=== PATIENT | female | born 1935 | race Asian ===

== ENCOUNTER 2017-07-26 23:26 | Inpatient (IN) | payer OTHER ==
--- NOTE | 2017-07-26 23:31 | PDOC ---
History of Present Illness - General Chief Complaint: Chest Pain Stated Complaint: CHEST PAIN Time Seen by Provider: 07/26/17 23:30 History Source: Patient Exam Limitations: No Limitations - History of Present Illness Initial Comments: 07/27/17 11:33 This is an 82-year-old female brought in by her daughter for evaluation of upper abdominal pain 1 day. Patient said that it began after eating some fatty food and is associated with some last couple of appetite and nausea. Patient denies any fevers, chills, vomiting or diarrhea. Patient's last bowel movement was today and smaller than normal. Patient denies history of similar pain in the past. Patient has history of hypertension, high cholesterol and diabetes. PAST MEDICAL HISTORY: no significant history PAST SURGICAL HISTORY: no significant history FAMILY HISTORY: no pertinant history SOCIAL HISTORY: Pt lives with family and is employed. MEDICATIONS: reviewed ALLERGIES: As per nursing notes Review of Systems General: No fevers or chills, no weakness, no weight loss HEENT: No change in vision. No sore throat,. No ear pain CardioVascular: No chest pain or shortness of breath Respiratory:No cough, or wheezing. Gastrointestinal:+ Abdominal pain, + nausea, no vomitting, diarrhea or constipation, No rectal bleeding Genitourinary: No dysuria, hematuria, or frequency Musculoskeletal: No joint or muscle pain or swelling Neurologic: No headache, vertigo, dizziness or loss of consciousness Psychiatric: nor depression Skin: No rashes or easy bruising Endocrine: no increased thirst or abnormal weight change Allergic: no skin or latex allergy All other systems reviewed and normal Exam: General: Well-nourished well-developed individual, no acute distress HEENT: Throat: Normal, tonsils normal, no erythema or exudate Neck: Supple, no meningeal signs, no lymphadenopathy Eyes::Pupils equal reactive and round, extraocular motion intact Chest: Nontender to palpation Cardiac: S1-S2 normal, regular rate and rhythm, no murmurs rubs or gallops Respiratory: Lungs clear to auscultation bilateral Abdomen: Soft, nondistended, normal bowel sounds, moderately tender to palpation epigastric and right upper quadrant. There is no guarding or rebound. Extremities: Warm, dry, no cyanosis, clubbing, or edema Skin: No rashes Neuro: Alert and oriented x3, CN II - XII intact, nonfocal exam with normal strength, normal sensation, normal reflexes, normal gait, Psych: Normal mood and affect Medical decision making: This is an 82-year-old female with right upper quadrant /epigastric pain on exam post eating some fatty food. Patient most likely has acute cholecystitis but also could be cardiac in nature, gastritis, or pneumonia. Will obtain workup including CBC, calm, cardiac enzymes, EKG, chest x -ray, ultrasound of gallbladder. Will reassess and follow-up results of workup 12MN EKG shows normal sinus rhythm at a rate of 62, no acute ST-T wave changes normal EKG Chest x-ray shows no acute pathology Reassessment patient remains unchanged. 01:30 Patient's ultrasound is positive for acute cholecystitis. Assessment and plan: This is an 82-year-old female who comes in complaining of epigastric/right upper quadrant pain 1 day. Patient's workup reveals acute cholecystitis with a 7 mm stone impacted in the neck of the gallbladder Patient otherwise has a normal white count there is no left shift and her liver enzymes are negative. Including lipase. Patient will be admitted to an inpatient bed to the medical service. Dr. Knapp is on-call for surgery and was called multiple times between 1:30 AM and 3:30 AM with no response. Medical hospitalist services was contacted who accepted the patient for admission and patient went upstairs. We'll continue to try to contact Dr. Knapp. 07:00 Dr. Knapp never responded back to his multiple pages however patient is on an i morningadmitted to an npatient bed and the admitting doctor is aware of the need to contact him as well as the nurses taking care of the patient upstairs is also aware that he needs to still be contacted Past History - Past Medical History Allergies/Adverse Reactions: Allergies Allergy/AdvReac Type Severity Reaction Status Date / Time clopidogrel [From Plavix] Allergy Verified 07/26/17 23:36 gabapentin Allergy Verified 07/26/17 23:36 montelukast [From Singulair] Allergy Verified 07/26/17 23:36 sulfamethoxazole Allergy Verified 07/26/17 23:35 [From Bactrim] trimethoprim [From Bactrim] Allergy Verified 07/26/17 23:35 Home Medications: Ambulatory Orders Acetaminophen 325 mg PO PRN PRN 07/26/17 Aspirin [Ecotrin] 81 mg PO DAILY 07/26/17 Bimatoprost [Lumigan] 1 drop IO DAILY 07/26/17 Brimonidine Tartrate [Alphagan P 0.1% -] 1 drop OP BID 07/26/17 Brinzolamide [Azopt] 1 drp OP DAILY 07/26/17 Calcium Carbonate/Vitamin D3 [Calcium Petites Softgel] 1 each PO DAILY 07/26/17 Cholecalciferol (Vitamin D3) [Vitamin D3] 1,000 unit PO DAILY 07/26/17 Docusate Sodium 100 mg PO DAILY 07/26/17 Enalapril Maleate [Vasotec] 20 mg PO DAILY 07/26/17 Gemfibrozil 600 mg PO DAILY 07/26/17 Hydrocortisone 1% Cream [Hytone 1% Cream -] 1 applic TP BID 07/26/17 Levothyroxine [Synthroid -] 75 mcg PO DAILY 07/26/17 Loratadine 10 mg PO HS 07/26/17 Lovastatin 10 mg PO DAILY 07/26/17 Metformin HCl 500 mg PO BID 07/26/17 Metoprolol Tartrate [Lopressor -] 25 mg PO BID 07/26/17 Olopatadine HCl [Pazeo] 1 drp OU DAILY 07/26/17 Propylene Glycol/Peg 400/Pf [Systane 0.3-0.4% Eye Drops] 1 each OP DAILY *Physical Exam - Vital Signs Last Vital Signs Temp Pulse Resp BP Pulse Ox 98 F 70 18 165/74 99 07/27/17 03:35 07/27/17 03:35 07/27/17 05:30 07/27/17 05:30 07/27/17 03:35 ED Treatment Course - LABORATORY CBC & Chemistry Diagram: 07/27/17 00:00 07/27/17 00:00 - ADDITIONAL ORDERS Additional order review: Laboratory Results 07/27/17 07/27/17 07/27/17 00:00 00:00 00:00 PT with INR INR Sodium Potassium Chloride Carbon Dioxide Anion Gap BUN Creatinine Creat Clearance w eGFR Random Glucose Calcium Total Bilirubin AST ALT Alkaline Phosphatase Creatine Kinase Cancelled Troponin I Cancelled Total Protein Albumin Lipase 214 07/27/17 07/27/17 07/26/17 00:00 00:00 23:58 PT with INR 11.00 INR 0.97 Sodium 135 L Potassium 4.1 Chloride 99 Carbon Dioxide 27 Anion Gap 9 BUN 19 H Creatinine 0.9 Creat Clearance w eGFR 59.80 Random Glucose 113 H Calcium 9.4 Total Bilirubin 0.4 AST 13 L ALT 15 Alkaline Phosphatase 48 Creatine Kinase 54 Troponin I < 0.02 Total Protein 7.6 Albumin 4.2 Lipase 07/27/17 00:00 RBC 4.51 MCV 88.1 MCHC 32.7 RDW 13.4 MPV 10.0 Neutrophils % 66.0 Lymphocytes % 22.9 Monocytes % 9.6 Eosinophils % 0.7 Basophils % 0.8 - RADIOLOGY Radiology Studies Ordered: Category Date Time Status CHEST X-RAY PORTABLE* [RAD] Stat Radiology 07/27/17 00:00 Taken GALLBLADDER US [US] Stat Ultrasound 07/27/17 00:01 Taken - Medications Given in the ED: ED Medications Discontinued Medications Generic Name Dose Route Start Last Admin Trade Name Freq PRN Reason Stop Dose Admin Al Hydroxide/Mg Hydroxide 30 ml 07/27/17 00:02 07/27/17 00:10 Mylanta Suspension - PO 07/27/17 00:03 30 ml ONCE ONE Administration Morphine Sulfate 2 mg 07/27/17 03:44 07/27/17 04:29 Morphine Injection - IVPUSH 07/27/17 03:45 Not Given ONCE ONE Morphine Sulfate 0.5 mg 07/27/17 03:43 07/27/17 03:58 Morphine Injection - IVPUSH 07/27/17 03:44 0.5 mg ONCE ONE Administration Piperacillin/Tazobactam/Dextrose 3.375 gm 07/27/17 01:39 07/27/17 04:29 Zosyn 3.375gm Ivpb (Premix) IVPB 07/27/17 01:40 Not Given ONCE ONE *DC/Admit/Observation/Transfer Diagnosis at time of Disposition: Acute cholecystitis due to biliary calculus - Discharge Dispostion Condition at time of disposition: Stable Admit: Yes Decision to Admit order Date/Time: Decision to Admit Order Category Date Time Status Decision to Admit to Hospital Routine Admission 07/27/17 02:59 Active - Referrals - Patient Instructions - Post Discharge Activity
[2017-07-27] MEDS ORDERED: MAG HYDROX/AL HYDROX/SIMETH -MYLANTA- ORAL SUSPENSION PO ONE (00:02)
[2017-07-27] MEDS ORDERED: MAG HYDROX/AL HYDROX/SIMETH 30 ML UNIT-DOSE CUP ONE (00:09)
[2017-07-27 01:16] LABS: BASO % 0.8 % (0-2.0); EOS % 0.7 % (0-4.5); HEMATOCRIT 39.7 % (32.4-45.2); LYMPH % 22.9 % (8-40); MCH 28.8 pg (25.7-33.7); MCHC 32.7 g/dl (32.0-36.0); MEAN CELL VOLUME 88.1 fl (80-96); MONO % 9.6 % (3.8-10.2); PLATELET COUNT 230 K/MM3 (134-434); RBC 4.51 M/mm3 (3.60-5.2); RDW 13.4 % (11.6-15.6); WHITE BLOOD COUNT 7.2 K/mm3 (4.0-10.0)
[2017-07-27 01:29] LABS: INR 0.97 (0.82-1.09)
[2017-07-27] MEDS ORDERED: PIPERACIL/TAZOB 3.375 GM 3.375 GM/50 ML PREMIX IVPB ONE (01:39)
[2017-07-27] MEDS ORDERED: PIPERACILLIN/TAZOBACTAM 3.375 GM VIAL IVPB ONE (01:44)
[2017-07-27] MEDS ORDERED: SODIUM CHLORIDE 1,000 ML IV SCH (01:45)
[2017-07-27 01:57] LABS: ALBUMIN 4.2 g/dl (3.4-5.0); ANION GAP 9 (8-16); BILIRUBIN,TOTAL 0.4 mg/dL (0.2-1.0); BLOOD UREA NITROGEN 19 mg/dL (7-18); CALCIUM 9.4 mg/dL (8.5-10.1); CHLORIDE 99 mmol/L (98-107); CO2 27 mmol/L (21-32); CREATININE 0.9 mg/dL (0.55-1.02); GLUCOSE,RANDOM 113 mg/dL (74-106); POTASSIUM 4.1 mmol/L (3.5-5.1); SGOT/AST 13 U/L (15-37); SGPT/ALT 15 U/L (12-78); SODIUM 135 mmol/L (136-145); TOT PROT 7.6 g/dl (6.4-8.2)
[2017-07-27 01:58] LABS: ALK PHOS 48 U/L (45-117)
[2017-07-27] MEDS ORDERED: morphine CARPU-JECT 2 MG/1 ML DISP.SYRIN IVPUSH ONE ×2 (03:43→03:44)
[2017-07-27] MEDS ORDERED: DEXTROSE 5%-0.45% SALINE 1,000 ML IV SCH (03:45)
[2017-07-27 04:50] VITALS: BMI 18.8
[2017-07-27 08:06] LABS: URINE APPEARANCE Clear; URINE BILIRUBIN Negative (NEGATIVE); URINE COLOR YELLOW; URINE GLUCOSE (UA) Negative (NEGATIVE); URINE KETONE Negative (NEGATIVE); URINE LEUK ESTERASE TRACE (NEGATIVE); URINE NITRITE Negative (NEGATIVE); URINE PROTEIN Negative (NEGATIVE); URINE UROBILINOGEN 0.2 (0.2-1.0)
--- NOTE | 2017-07-27 08:39 | PN ---
Progress Note (short form) - Note Progress Note: ID Consult dictated Acute cholecystitis R/O biliary sepsis Pending cultures, continue empiric zosyn
[2017-07-27] MEDS: PIPERACILLIN/TAZOB 3.375 GM 3.375 GM/50 ML BAG IVPB SCH ×2 (09:34→17:07)
[2017-07-27 09:57] LABS: BASO % 0.4 % (0-2.0); EOS % 0.9 % (0-4.5); HEMATOCRIT 42.3 % (32.4-45.2); HEMOGLOBIN 14.1 GM/dl (10.7-15.3); LYMPH % 22.5 % (8-40); MCH 28.5 pg (25.7-33.7); MCHC 33.3 g/dl (32.0-36.0); MEAN CELL VOLUME 85.5 fl (80-96); MONO % 9.8 % (3.8-10.2); NEUT % 66.4 % (42.8-82.8); PLATELET COUNT 262 K/MM3 (134-434); RBC 4.95 M/mm3 (3.60-5.2); RDW 12.7 % (11.6-15.6); WHITE BLOOD COUNT 10.9 K/mm3 (4.0-10.8)
[2017-07-27] MEDS ORDERED: PIPERACILLIN/TAZOB 3.375 GM 3.375 GM/50 ML BAG IVPB SCH ×2 (10:00)
[2017-07-27] MEDS ORDERED: PIPERACIL/TAZOB 3.375 GM 3.375 GM/50 ML PREMIX IVPB SCH (10:00)
[2017-07-27 10:04] LABS: ALBUMIN 4.5 g/dl (3.5-5.0); ALK PHOS 45 U/L (32-92); ANION GAP 8 (8-16); BILIRUBIN,TOTAL 1.1 mg/dl (0.2-1.0); BLOOD UREA NITROGEN 15 mg/dl (7-18); CALCIUM 9.2 mg/dl (8.4-10.2); CHLORIDE 101 mmol/L (98-107); CO2 24 mmol/L (22-28); GLUCOSE,RANDOM 142 mg/dl (74-106); MAGNESIUM 2.2 mg/dL (1.8-2.4); PHOSPHOROUS 2.6 mg/dl (2.5-4.6); SGOT/AST 22 U/L (10-42); SGPT/ALT 12 U/L (10-40); SODIUM 133 mmol/L (136-145); TOT PROT 7.4 g/dl (6.4-8.3)
--- NOTE | 2017-07-27 10:07 | EKG ---
Test Reason : Blood Pressure : / mmHG Vent. Rate : 062 BPM Atrial Rate : 062 BPM P-R Int : 178 ms QRS Dur : 092 ms QT Int : 408 ms P-R-T Axes : 069 -12 072 degrees QTc Int : 414 ms NORMAL SINUS RHYTHM NORMAL ECG NO PREVIOUS ECGS AVAILABLE Confirmed by DENISSE JUDGE, EMMANUEL ([id number]) on 07/27/2017 10:07:12 AM Referred By: AAMIR CHAUDHRY Confirmed By:EMMANUEL SALCEDO MD
[2017-07-27 10:22] LABS: CREATININE < 0.8 mg/dl (0.6-1.3)
[2017-07-27 12:44] LABS: URINE RBC NONE SEEN /hpf (0-3)
[2017-07-27 12:46] LABS: EPI CELLS NONE SEEN /HPF
[2017-07-27 12:47] LABS: URINE BACTERIA FEW /hpf (NEGATIVE)
--- NOTE | 2017-07-27 14:14 | HP ---
Admitting History and Physical - Admission Chief Complaint: abdominal pain History of Present Illness: 82 yo female coming in for nausea and abdominal discomfort after the ingestion of fatty food yesterday . The patient was seen in ER and was diagnosed with cholelithiasis by US, with impacted 7 mm stone in the gallbladder neck. She denies any fever or vomiting History Source: Family Member - Past Medical History Cardiovascular: Yes: HTN Gastrointestinal: Yes: Constipation ...: No Musculoskeletal: Yes: Chronic low back pain, Osteoarthritis (of the knees), Other (Spinal stenosis of the cervical area) Endocrine: Yes: Diabetes Mellitus, Hypothyroidism - Smoking History Smoking history: Never smoked - Alcohol/Substance Use Hx Alcohol Use: No - Social History Usual Living Arrangement: Yes: With Significant Other (daughter) ADL: Independent History of Recent Travel: No Home Medications - Allergies Allergies/Adverse Reactions: Allergies Allergy/AdvReac Type Severity Reaction Status Date / Time clopidogrel [From Plavix] Allergy Verified 07/26/17 23:36 gabapentin Allergy Verified 07/26/17 23:36 montelukast [From Singulair] Allergy Verified 07/26/17 23:36 sulfamethoxazole Allergy Verified 07/26/17 23:35 [From Bactrim] trimethoprim [From Bactrim] Allergy Verified 07/26/17 23:35 - Home Medications Home Medications: Ambulatory Orders Acetaminophen 325 mg PO PRN PRN 07/26/17 Aspirin [Ecotrin] 81 mg PO DAILY 07/26/17 Bimatoprost [Lumigan] 1 drop IO DAILY 07/26/17 Brimonidine Tartrate [Alphagan P 0.1% -] 1 drop OP BID 07/26/17 Brinzolamide [Azopt] 1 drp OP DAILY 07/26/17 Calcium Carbonate/Vitamin D3 [Calcium Petites Softgel] 1 each PO DAILY 07/26/17 Cholecalciferol (Vitamin D3) [Vitamin D3] 1,000 unit PO DAILY 07/26/17 Docusate Sodium 100 mg PO DAILY 07/26/17 Enalapril Maleate [Vasotec] 20 mg PO DAILY 07/26/17 Gemfibrozil 600 mg PO DAILY 07/26/17 Hydrocortisone 1% Cream [Hytone 1% Cream -] 1 applic TP BID 07/26/17 Levothyroxine [Synthroid -] 75 mcg PO DAILY 07/26/17 Loratadine 10 mg PO HS 07/26/17 Lovastatin 10 mg PO DAILY 07/26/17 Metformin HCl 500 mg PO BID 07/26/17 Metoprolol Tartrate [Lopressor -] 25 mg PO BID 07/26/17 Olopatadine HCl [Pazeo] 1 drp OU DAILY 07/26/17 Propylene Glycol/Peg 400/Pf [Systane 0.3-0.4% Eye Drops] 1 each OP DAILY Review of Systems - Review of Systems Constitutional: reports: Loss of Appetite Eyes: reports: No Symptoms HENT: reports: No Symptoms Neck: reports: No Symptoms Cardiovascular: reports: No Symptoms Respiratory: reports: No Symptoms Gastrointestinal: reports: Constipation, Nausea, Other (epigastric pain) Genitourinary: reports: No Symptoms Breasts: reports: No Symptoms Reported Musculoskeletal: reports: Other (bilateral knee pain, lower back pain and cervical area pain) Integumentary: reports: No Symptoms Neurological: reports: Weakness (in the lower extremities) Psychiatric: reports: No Symptoms Physical Examination Vital Signs: Vital Signs Temperature 98.4 F 07/27/17 09:30 Pulse Rate 68 07/27/17 09:30 Respiratory Rate 20 07/27/17 09:30 Blood Pressure 156/68 07/27/17 09:30 O2 Sat by Pulse Oximetry (%) 99 07/27/17 03:35 Constitutional: Yes: No Distress, Calm Eyes: Yes: Conjunctiva Clear, EOM Intact HENT: Yes: Atraumatic, Normocephalic Neck: Yes: Supple, Trachea Midline Cardiovascular: Yes: Regular Rate and Rhythm, S1, S2 Respiratory: Yes: Regular, CTA Bilaterally Gastrointestinal: Yes: Normal Bowel Sounds, Soft, Tenderness, Epigastrium, Other (Moore's positive) ...Rectal Exam: Yes: Deferred Breast(s): Yes: WNL Extremities: No: Calf Tenderness Edema: No Peripheral Pulses WNL: Yes Integumentary: Yes: WNL Neurological: Yes: Alert, Oriented Psychiatric: Yes: Alert, Oriented Labs: CBC, BMP 07/27/17 09:20 07/27/17 09:30 Imaging - Results Chest X-ray: Other (slightly enlarged heart size, no pleural effusion, no infiltrate) Ultrasound: Other (multiple gall stones the largest 7 mm blocking the neck of the gallbladder) Other: Other (HIFDA scan pending) Problem List - Problems (1) Acute cholecystitis due to biliary calculus Assessment/Plan: NPO except for Metoprolol Protonix IV surgical consult cardiology consult for clearance Code(s): K80.00 - CALCULUS OF GALLBLADDER W ACUTE CHOLECYST W/O OBSTRUCTION (2) Diabetes mellitus type 2 in nonobese Assessment/Plan: D51NS at 45 c/h accucheckes with ELY Code(s): E11.9 - TYPE 2 DIABETES MELLITUS WITHOUT COMPLICATIONS (3) Hypothyroidism Assessment/Plan: hold Synthroid Code(s): E03.9 - HYPOTHYROIDISM, UNSPECIFIED (4) HTN (hypertension) Assessment/Plan: monitor and correct accordingly Code(s): I10 - ESSENTIAL (PRIMARY) HYPERTENSION Assessment/Plan 82 yo female with acute cholecystitis, awaiting for the ECHo results and Cardiology clearance in view of surgery
[2017-07-27] MEDS: DEXTROSE 5%-NORMAL SALINE 1,000 ML IV SCH ×2 (15:32→23:08)
--- NOTE | 2017-07-27 15:54 | CON.CARD ---
Cardiology Consult (text) - Consultation Consultation Note: CC: pre-op clearance 82 yo active woman with h/o of htn, hl, niddm, hypothyroid who p/w abdominal pain and found to have acute cholecystitis. sx's 1 day after eating fatty food. associated with loss of appetite and nausea. + sciatica, recently completed PT functional status: active, can walk up stairs. independently comm[place] into the city, goes to dance class. No limitations. denies any fevers, chills, sweats, vomiting, diarrhea, h/a, cough, congestion, rash. no hx of cad/cva/chf/ckd pmhx/pshx: per hpi fam hx: no cardiac hx social hx: never smoker, no etoh. ros: per hpi Ambulatory Orders Acetaminophen 325 mg PO PRN PRN 07/26/17 Aspirin [Ecotrin] 81 mg PO DAILY 07/26/17 Bimatoprost [Lumigan] 1 drop IO DAILY 07/26/17 Brimonidine Tartrate [Alphagan P 0.1% -] 1 drop OP BID 07/26/17 Brinzolamide [Azopt] 1 drp OP DAILY 07/26/17 Calcium Carbonate/Vitamin D3 [Calcium Petites Softgel] 1 each PO DAILY 07/26/17 Cholecalciferol (Vitamin D3) [Vitamin D3] 1,000 unit PO DAILY 07/26/17 Docusate Sodium 100 mg PO DAILY 07/26/17 Enalapril Maleate [Vasotec] 20 mg PO DAILY 07/26/17 Gemfibrozil 600 mg PO DAILY 07/26/17 Hydrocortisone 1% Cream [Hytone 1% Cream -] 1 applic TP BID 07/26/17 Levothyroxine [Synthroid -] 75 mcg PO DAILY 07/26/17 Loratadine 10 mg PO HS 07/26/17 Lovastatin 10 mg PO DAILY 07/26/17 Metformin HCl 500 mg PO BID 07/26/17 Metoprolol Tartrate [Lopressor -] 25 mg PO BID 07/26/17 Olopatadine HCl [Pazeo] 1 drp OU DAILY 07/26/17 Propylene Glycol/Peg 400/Pf [Systane 0.3-0.4% Eye Drops] 1 each OP DAILY Current Medications Brimonidine Tartrate (Alphagan P 0.1% -) 1 drop OU BID ANGELICA Piperacillin Sod/Tazobactam Sod (Zosyn 3.375gm Ivpb (Pre-Docked)) 3.375 gm in 50 mls @ 100 mls/hr IVPB Q8H-IV ANGELICA PRN Reason: Protocol Last Admin: 07/27/17 09:34 Dose: 100 mls/hr Dextrose/Sodium Chloride (D5-Ns -) 1,000 mls @ 42 mls/hr IV ASDIR ANGELICA Last Admin: 07/27/17 15:32 Dose: 42 mls/hr Insulin Aspart (Novolog Vial Sliding Scale -) 1 vial SQ ACHS ANGELICA PRN Reason: Protocol Vital Signs - 24 hr 07/26/17 07/27/17 07/27/17 23:47 03:14 03:18 Temperature 98.1 F 98.0 F 97.7 F Pulse Rate 64 68 Pulse Rate [ 69 Right] Respiratory 16 19 Rate Blood Pressure 202/94 183/78 Blood Pressure 186/103 [Left Arm] O2 Sat by Pulse 100 100 Oximetry (%) 07/27/17 07/27/17 07/27/17 03:35 05:30 09:30 Temperature 98 F 98.4 F Pulse Rate 70 68 Pulse Rate [ Right] Respiratory 18 18 20 Rate Blood Pressure 183/78 165/74 156/68 Blood Pressure [Left Arm] O2 Sat by Pulse 99 Oximetry (%) 07/27/17 15:47 Temperature 97.7 F Pulse Rate 80 Pulse Rate [ Right] Respiratory 18 Rate Blood Pressure 150/76 Blood Pressure [Left Arm] O2 Sat by Pulse Oximetry (%) Intake & Output 07/25/17 07/26/17 07/27/17 07/28/17 07:59 07:59 07:59 07:59 Intake Total 176 Balance 176 Weight 103 lb 1.6 oz nad, appears younger than stated age jvd flat, neck supple irregular rhythm, regular rate. nl s1, s2 no mrg ctab, nl effort + bs soft nt nd ext without e/c/c + dp/pt, no carotid bruits aaox3 no jaundice, diaphoresis. CBC, BMP 07/27/17 09:20 07/27/17 09:30 Laboratory Tests 03/01/17 07/26/17 07/27/17 08:42 23:58 00:00 Sodium 135 L Magnesium Total Bilirubin 0.4 AST 13 L ALT 15 Alkaline Phosphatase 48 Creatine Kinase 54 Troponin I < 0.02 Triglycerides 92 Cholesterol 175 Total LDL Cholesterol 93 HDL Cholesterol 64 Lipase 07/27/17 07/27/17 07/27/17 00:00 09:30 09:30 Sodium Magnesium 2.2 Total Bilirubin 1.1 H D AST 22 ALT 12 D Alkaline Phosphatase 45 Creatine Kinase Troponin I < 0.03 Triglycerides Cholesterol Total LDL Cholesterol HDL Cholesterol Lipase 214 ekg: sr, rsr' variant. no ischemic ekg changes tele: SR frequent pvc's. echo 07/2017: nl lv size/fn. E, A reversal. RV not well seen. mild-mod ar, 1+ mr/tr. rvsp 30-40. cxr: wnl. ASSESSMENT/PLAN 82 yo active woman with h/o of htn, hl, niddm, hypothyroid who p/w abdominal pain and found to have acute cholecystitis. Pre-op clearance/frequent pvc's. - Based on RCRI and excellent functional status, patient is at a low risk for richi-operative CV events. No further testing required prior to surgery. Patient and family counseled on risk. - irregularity on cardiac exam. Tele monitor placed --> SR with frequent pvc' s. will change metoprolol to long acting. lyte repletion prn. htn - initially suboptimal while in pain and prior to receiving anti-htn regimen, now improving. enalapril and metoprolol resumed, con't to monitor. hl - resume asa, statin when safe from GI perspective.
[2017-07-27] MEDS ORDERED: MEPERIDINE HCL CARPU-JECT 50 MG/1 ML DISP.SYRIN IVPB PRN (16:09)
[2017-07-27] MEDS ORDERED: HYDROmorphone HCL CARPU-JECT 1 MG/1 ML DISP.SYRIN IVPB PRN (16:11)
[2017-07-27] MEDS ORDERED: ONDANSETRON 4 MG/2 ML VIAL IVPUSH PRN (16:12)
[2017-07-27] MEDS: INSULIN SLIDING SCALE (NOVOLOG) 1 VIAL SQ SCH ×2 (16:13→23:10)
[2017-07-27] MEDS: PANTOPRAZOLE SODIUM 40 MG VIAL IVPUSH SCH (16:13)
[2017-07-27] MEDS ORDERED: INSULIN SLIDING SCALE (NOVOLOG) 1 VIAL SQ SCH (16:30)
--- NOTE | 2017-07-27 17:50 | CONS ---
INFECTIOUS DISEASE CONSULTATION DATE OF CONSULTATION: 07/27/2017 The patient is an 82-year-old female who is evaluated for acute cholecystitis. She reports a 1-day history of abdominal pain. She had developed epigastric and bilateral upper quadrant abdominal pain postprandially, associated with nausea. It became progressively worse. She presented to the emergency room where a sonogram showed changes consistent with cholecystitis and a 7-mm stone in the neck of the gallbladder. She denies any associated fever or chills. She did have a bowel movement 2 days prior to admission and a small bowel movement yesterday. PAST MEDICAL HISTORY: Positive for hypertension, hyperlipidemia, diabetes mellitus, spinal stenosis. ALLERGIES: PLAVIX, NEURONTIN, SINGULAIR, SULFA. SOCIAL HISTORY: Resides at home. Nonsmoker, nondrinker. SYSTEMS REVIEW: Neurologic: No loss of consciousness, seizure activity, focal weakness. Cardiac: Negative chest pain or palpitations. Respiratory: Negative cough or sputum production. Gastrointestinal: As per HPI. Genitourinary: Negative for urinary tract infection. LABORATORY DATA: White count 7.2, hematocrit 39.7, platelet count 232. BUN 19, creatinine 0.9. Liver enzymes normal. Lipase 214. Chest x-ray negative. PHYSICAL EXAMINATION: General: Patient is awake and alert. Vital Signs: Temperature 98; blood pressure 165/74; pulse 70, regular; respirations 14 per minute. Heart: Sounds S1, S2. Lungs: Clear. Abdomen: Soft. There is epigastric and bilateral upper quadrant tenderness to palpation. No mass, rebound, or rigidity. Extremities: Negative for edema. IMPRESSION: 1. Acute cholecystitis. 2. Possible biliary sepsis. 3. Diabetes mellitus. Obtain blood cultures. Empiric antibiotic coverage biliary tract pathogens with Zosyn. Surgical evaluation. Will follow. Thank you for the kind referral. MAGO BORJAS M.D. CHRISTY/[id number]
[2017-07-27] MEDS: metoPROLOL SUCCINATE 25 MG TAB.SR.24H (FP) PO SCH ×2 (18:36→23:08)
--- NOTE | 2017-07-27 18:39 | CONSULT ---
Consult Consult Specialty:: Surgery Reason for Consultation:: Abdominal pain. Acute cholecystitis - History of Present Illness Chief Complaint: Abdominal pain - History Source History Provided By: Patient Limitations to Obtaining History: No Limitations - Past Medical History Cardio/Vascular: Yes: HTN Gastrointestinal: Yes: Constipation ...: No Endocrine: Yes: Diabetes Mellitus, Hypothyroidism - Alcohol/Substance Use Hx Alcohol Use: No - Smoking History Smoking history: Never smoked Home Medications - Allergies Allergies/Adverse Reactions: Allergies Allergy/AdvReac Type Severity Reaction Status Date / Time clopidogrel [From Plavix] Allergy Verified 07/26/17 23:36 gabapentin Allergy Verified 07/26/17 23:36 montelukast [From Singulair] Allergy Verified 07/26/17 23:36 sulfamethoxazole Allergy Verified 07/26/17 23:35 [From Bactrim] trimethoprim [From Bactrim] Allergy Verified 07/26/17 23:35 - Home Medications Home Medications: Ambulatory Orders Acetaminophen 325 mg PO PRN PRN 07/26/17 Aspirin [Ecotrin] 81 mg PO DAILY 07/26/17 Bimatoprost [Lumigan] 1 drop IO DAILY 07/26/17 Brimonidine Tartrate [Alphagan P 0.1% -] 1 drop OP BID 07/26/17 Brinzolamide [Azopt] 1 drp OP DAILY 07/26/17 Calcium Carbonate/Vitamin D3 [Calcium Petites Softgel] 1 each PO DAILY 07/26/17 Cholecalciferol (Vitamin D3) [Vitamin D3] 1,000 unit PO DAILY 07/26/17 Docusate Sodium 100 mg PO DAILY 07/26/17 Enalapril Maleate [Vasotec] 20 mg PO DAILY 07/26/17 Gemfibrozil 600 mg PO DAILY 07/26/17 Hydrocortisone 1% Cream [Hytone 1% Cream -] 1 applic TP BID 07/26/17 Levothyroxine [Synthroid -] 75 mcg PO DAILY 07/26/17 Loratadine 10 mg PO HS 07/26/17 Lovastatin 10 mg PO DAILY 07/26/17 Metformin HCl 500 mg PO BID 07/26/17 Metoprolol Tartrate [Lopressor -] 25 mg PO BID 07/26/17 Olopatadine HCl [Pazeo] 1 drp OU DAILY 07/26/17 Propylene Glycol/Peg 400/Pf [Systane 0.3-0.4% Eye Drops] 1 each OP DAILY Family Disease History - Family Disease History Family History: Denies Review of Systems - Review of Systems Constitutional: denies: Chills, Fever HENT: reports: No Symptoms Neck: reports: No Symptoms Cardiovascular: reports: No Symptoms Respiratory: reports: No Symptoms Gastrointestinal: reports: Abdominal Pain Genitourinary: reports: No Symptoms Neurological: reports: No Symptoms Pain Intensity: 3 Physical Exam Vital Signs: Vital Signs Temperature 97.7 F 07/27/17 15:47 Pulse Rate 80 07/27/17 15:47 Respiratory Rate 18 07/27/17 15:47 Blood Pressure 150/76 07/27/17 15:47 O2 Sat by Pulse Oximetry (%) 99 07/27/17 03:35 Constitutional: Yes: Calm HENT: Yes: WNL Neck: Yes: WNL Cardiovascular: Yes: Regular Rate and Rhythm Respiratory: Yes: Regular Gastrointestinal: Yes: Soft. No: Tenderness, Tenderness, Rebound Neurological: Yes: Alert, Oriented Labs: CBC, BMP 07/27/17 09:20 07/27/17 09:30 Imaging - Results Ultrasound: Report Reviewed, Image Reviewed Other: Report Reviewed, Image Reviewed Problem List - Problems (1) Acute cholecystitis due to biliary calculus Code(s): K80.00 - CALCULUS OF GALLBLADDER W ACUTE CHOLECYST W/O OBSTRUCTION Assessment/Plan + HIDA Will need laparoscopic possible open cholecystectomy
[2017-07-27] MEDS ORDERED: METOPROLOL TARTRATE 25 MG TABLET (FP) PO SCH (22:00)
[2017-07-27] MEDS ORDERED: BRIMONIDINE TARTRATE 0.1% OPHTHALMIC 5 ML BOTTLE OU SCH (22:00)
[2017-07-28] MEDS ORDERED: ceFAZolin SODIUM 1 GM VIAL IVPB ONE
[2017-07-28] MEDS ORDERED: PIPERACILLIN/TAZOBACTAM 3.375 GM VIAL IVPB ONE ×3 (01:32→16:05)
[2017-07-28] MEDS ORDERED: DEXTROSE 5%-WATER - 50 ML IVPB ONE ×3 (01:33→16:05)
[2017-07-28] MEDS: PIPERACILLIN/TAZOB 3.375 GM 3.375 GM in DEXTROSE 5%-WATER - 50 ML IVPB SCH ×3 (01:41→18:00)
[2017-07-28] MEDS: INSULIN SLIDING SCALE (NOVOLOG) 1 VIAL SQ SCH ×3 (06:02→22:10)
[2017-07-28 08:38] LABS: BASO % 0.9 % (0-2.0); HEMATOCRIT 40.4 % (32.4-45.2); HEMOGLOBIN 13.2 GM/dL (10.7-15.3); LYMPH % 30.2 % (8-40); MCH 28.7 pg (25.7-33.7); MCHC 32.7 g/dl (32.0-36.0); MEAN CELL VOLUME 87.6 fl (80-96); MEAN PLT VOLUME 9.1 fl (7.5-11.1); MONO % 12.5 % (3.8-10.2); NEUT % 53.4 % (42.8-82.8); PLATELET COUNT 229 K/MM3 (134-434); RBC 4.61 M/mm3 (3.60-5.2); RDW 13.5 % (11.6-15.6); WHITE BLOOD COUNT 5.2 K/mm3 (4.0-10.0)
--- NOTE | 2017-07-28 08:52 | PN ---
Progress Note, Physician Chief Complaint: constipation, RUQ pain with deep inspiration History of Present Illness: 82 yo female admitted with RUQ pain, nausea and elevated blood pressure. US and HIDA scan diagnosed gallstone cholecystitis with a 7 mm impacted stone. The patient is scheduled for laparoscopic cholecystectomy today. She had an uneventful night without any pain, nausea or fever. - Current Medication List Current Medications: Active Medications Enalapril Maleate (Vasotec -) 20 mg PO DAILY [facility] Hydromorphone HCl (Dilaudid Injection -) 0.5 mg IVPB Q4H PRN PRN Reason: PAIN LEVEL 6-10 Dextrose/Sodium Chloride (D5-Ns -) 1,000 mls @ 42 mls/hr IV ASDIR [facility] Last Admin: 07/27/17 23:08 Dose: 42 mls/hr Piperacillin Sod/Tazobactam (Sod 3.375 gm/ Dextrose) 50 mls @ 100 mls/hr IVPB Q8H-IV [facility] PRN Reason: Protocol Last Admin: 07/28/17 01:41 Dose: 100 mls/hr Insulin Aspart (Novolog Vial Sliding Scale -) 1 vial SQ ACHS [facility] PRN Reason: Protocol Last Admin: 07/28/17 06:02 Dose: Not Given Metoprolol Succinate (Toprol Xl -) 25 mg PO BID [facility] Last Admin: 07/27/17 23:08 Dose: 25 mg Non-Formulary Medication (Patient's Own Med) 1 each OD HS [facility] Ondansetron HCl (Zofran Injection) 4 mg IVPUSH Q8H PRN PRN Reason: NAUSEA Pantoprazole Sodium (Protonix Iv) 40 mg IVPUSH DAILY [facility] Last Admin: 07/27/17 16:13 Dose: 40 mg - Objective Vital Signs: Vital Signs Temperature 98.7 F 07/28/17 08:33 Pulse Rate 78 07/28/17 08:33 Respiratory Rate 18 07/28/17 08:33 Blood Pressure 136/66 07/28/17 08:33 O2 Sat by Pulse Oximetry (%) 98 07/28/17 06:00 Constitutional: Yes: No Distress, Calm Eyes: Yes: Conjunctiva Clear, EOM Intact HENT: Yes: Atraumatic, Normocephalic Neck: Yes: Supple, Trachea Midline Cardiovascular: Yes: Regular Rate and Rhythm, S1, S2 Respiratory: Yes: Regular, CTA Bilaterally Gastrointestinal: Yes: Normal Bowel Sounds, Soft, Tenderness (in the right upper quadrant, palpable gallblader, Moore's sign positive) ...Rectal Exam: Yes: Deferred Genitourinary: Yes: WNL Breast(s): Yes: WNL Musculoskeletal: Yes: WNL Extremities: No: Calf Tenderness Edema: No Peripheral Pulses WNL: Yes Integumentary: Yes: WNL Neurological: Yes: Alert, Oriented Psychiatric: Yes: Alert, Oriented Labs: CBC, BMP 07/28/17 07:30 INR, PTT INR 0.97 (0.82-1.09) 07/27/17 00:00 - ....Imaging Ultrasound: Other (cholelithiasis and impacted gallstone) Other: Other (HIDA scan demonstrating cholecystitis acute versus chronic ECHO: normal size cardiac chambers, normal wall motion, increased pulmonary pressure) Problem List - Problems (1) Acute cholecystitis due to biliary calculus Assessment/Plan: NPO except for Metoprolol protonix IV surgical consult the patient is cleared by Cardiology for the procedure and is under Zosyn antibiotic coverage pain management with Dilaudid iv, but until now the patient did not require any EKG pre and post surgery type and xross match 2 units PRBC cardiac enzymes postsurgery Code(s): K80.00 - CALCULUS OF GALLBLADDER W ACUTE CHOLECYST W/O OBSTRUCTION (2) Diabetes mellitus type 2 in nonobese Assessment/Plan: well controlled DM prior to the current clinical events on D51NS at 45 c/h while NPO for surgery accucheckes with ELY with good values throughout the night and early in the morning Code(s): E11.9 - TYPE 2 DIABETES MELLITUS WITHOUT COMPLICATIONS (3) Hypothyroidism Assessment/Plan: hold Synthroid until after surgery TSH is elevated, will require Synthroid dosage adjustment Code(s): E03.9 - HYPOTHYROIDISM, UNSPECIFIED (4) HTN (hypertension) Assessment/Plan: monitor and correct accordingly Toprol XL 25 mg po bid Code(s): I10 - ESSENTIAL (PRIMARY) HYPERTENSION Assessment/Plan 82 yo female with acute cholecystitis, HTN, DM type 2, hypothyroidism Class III ASA medically clear
--- NOTE | 2017-07-28 09:06 | PN ---
Progress Note, Physician History of Present Illness: Awake, alert No c/o abdominal pain No c/o nausea/ vomiting Afebrile - Current Medication List Current Medications: Active Medications Al Hydroxide/Mg Hydroxide (Mylanta Oral Suspension -) 30 ml PO ONCE ONE Stop: 07/28/17 20:01 Enalapril Maleate (Vasotec -) 20 mg PO DAILY [facility] Hydromorphone HCl (Dilaudid Injection -) 0.5 mg IVPB Q4H PRN PRN Reason: PAIN LEVEL 6-10 Dextrose/Sodium Chloride (D5-Ns -) 1,000 mls @ 42 mls/hr IV ASDIR [facility] Last Admin: 07/27/17 23:08 Dose: 42 mls/hr Piperacillin Sod/Tazobactam (Sod 3.375 gm/ Dextrose) 50 mls @ 100 mls/hr IVPB Q8H-IV [facility] PRN Reason: Protocol Last Admin: 07/28/17 01:41 Dose: 100 mls/hr Insulin Aspart (Novolog Vial Sliding Scale -) 1 vial SQ ACHS [facility] PRN Reason: Protocol Last Admin: 07/28/17 06:02 Dose: Not Given Metoprolol Succinate (Toprol Xl -) 25 mg PO BID [facility] Last Admin: 07/27/17 23:08 Dose: 25 mg Non-Formulary Medication (Patient's Own Med) 1 each OD HS [facility] Ondansetron HCl (Zofran Injection) 4 mg IVPUSH Q8H PRN PRN Reason: NAUSEA Pantoprazole Sodium (Protonix Iv) 40 mg IVPUSH DAILY [facility] Last Admin: 07/27/17 16:13 Dose: 40 mg - Objective Vital Signs: Vital Signs Temperature 98.7 F 07/28/17 08:33 Pulse Rate 78 07/28/17 08:33 Respiratory Rate 18 07/28/17 08:33 Blood Pressure 136/66 07/28/17 08:33 O2 Sat by Pulse Oximetry (%) 98 07/28/17 06:00 Constitutional: Yes: No Distress Eyes: Yes: Conjunctiva Clear Cardiovascular: Yes: Regular Rate and Rhythm, S1, S2 Respiratory: Yes: CTA Bilaterally Gastrointestinal: Yes: Normal Bowel Sounds, Soft. No: Tenderness Edema: No Labs: CBC, BMP 07/28/17 07:30 INR, PTT INR 0.97 (0.82-1.09) 07/27/17 00:00 Assessment/Plan Acute cholecystitis
[2017-07-28 09:26] LABS: BLOOD UREA NITROGEN 16 mg/dL (7-18); CREATININE 0.9 mg/dL (0.55-1.02); GLUCOSE,RANDOM 115 mg/dL (74-106)
[2017-07-28 09:29] LABS: ALBUMIN 3.9 g/dl (3.4-5.0); ANION GAP 7 (8-16); BILIRUBIN,TOTAL 0.9 mg/dL (0.2-1.0); CALCIUM 8.5 mg/dL (8.5-10.1); CHLORIDE 105 mmol/L (98-107); CO2 26 mmol/L (21-32); SODIUM 138 mmol/L (136-145); TOT PROT 7.1 g/dl (6.4-8.2)
[2017-07-28 09:30] LABS: ALK PHOS 54 U/L (45-117); LDH 134 U/L (84-246); SGOT/AST 16 U/L (15-37); SGPT/ALT 16 U/L (12-78)
[2017-07-28] MEDS: metoPROLOL SUCCINATE 25 MG TAB.SR.24H (FP) PO SCH (10:00)
[2017-07-28] MEDS: PANTOPRAZOLE SODIUM 40 MG VIAL IVPUSH SCH (10:00)
[2017-07-28] MEDS ORDERED: ENALAPRIL MALEATE 10 MG TABLET (FP) PO SCH (10:00)
[2017-07-28 10:01] LABS: CHOLESTEROL 183 mg/dL (50-200)
[2017-07-28] MEDS ORDERED: PT OWN MED DRAWER 7, Y5N ONE (10:01)
[2017-07-28 10:02] LABS: HDL CHOLESTEROL 80 mg/dl (29-89); TRIGLYCERIDES 91 mg/dL (35-160)
--- NOTE | 2017-07-28 10:46 | EKG ---
Test Reason : Blood Pressure : / mmHG Vent. Rate : 089 BPM Atrial Rate : 074 BPM P-R Int : 164 ms QRS Dur : 086 ms QT Int : 388 ms P-R-T Axes : 083 090 067 degrees QTc Int : 472 ms SINUS RHYTHM WITH FREQUENT PREMATURE VENTRICULAR COMPLEXES RIGHTWARD AXIS BORDERLINE ECG WHEN COMPARED WITH ECG OF 26-JUL-2017 23:47, PREMATURE VENTRICULAR COMPLEXES ARE NOW PRESENT QT HAS LENGTHENED Confirmed by DENISSE JUDGE, EMMANUEL ([id number]) on 07/28/2017 10:46:07 AM Referred By: Sumit DEUTSCH Confirmed By:EMMANUEL SALCEDO MD
[2017-07-28] MEDS ORDERED: ROCURONIUM BROMIDE 50 MG/5 ML VIAL ONE (13:05)
[2017-07-28] MEDS ORDERED: PROPOFOL 20 ML ONE (13:05)
[2017-07-28] MEDS ORDERED: LIDOCAINE HCL/PF 2% SDV 5ML VIAL ONE (13:06)
[2017-07-28] MEDS ORDERED: DEXAMETHASONE SOD PHOSPHATE 4 MG/1 ML VIAL ONE (13:07)
[2017-07-28] MEDS ORDERED: BUPIVACAINE HCL/PF 0.5% (5MG/ML) 10 ML VIAL ONE (13:07)
[2017-07-28] MEDS ORDERED: ePHEDrine SULFATE 50 MG/1 ML AMPULE ONE (13:39)
[2017-07-28] MEDS ORDERED: LABETALOL HCL 5 MG/1 ML (100MG/20 ML VIAL) ONE (13:54)
[2017-07-28] MEDS ORDERED: BUPIVACAINE HCL/PF 0.5% (5MG/ML) 10 ML VIAL IJ ONE (14:01)
[2017-07-28] MEDS ORDERED: KETOROLAC TROMETHAMINE 30 MG/1 ML VIAL ONE (14:13)
[2017-07-28] MEDS: DEXTROSE 5%-NORMAL SALINE 1,000 ML IV SCH (14:39)
[2017-07-28] MEDS ORDERED: ESMOLOL HCL 100,000 MCG/10 ML VIAL ONE (15:04)
[2017-07-28] MEDS ORDERED: METOPROLOL TARTRATE 5 MG/5 ML VIAL ONE (15:10)
[2017-07-28] MEDS ORDERED: NEOSTIGMINE METHYLSULFATE 0.5 MG/ML - 10 ML MDV ONE (15:43)
[2017-07-28] MEDS ORDERED: GLYCOPYRROLATE 0.2 MG/1 ML VIAL ONE (15:43)
--- NOTE | 2017-07-28 15:47 | OP ---
Operative Note - Note: Operative Date: 07/28/17 Pre-Operative Diagnosis: Acute cholecystitis Operation: Laparoscopic cholecystectomy, lysis of adhesions, oversewing/repair of duodenal serosal defect Findings: Intraabdominal adhesions Inflamed gallbladder with hydrops Duodenal serosal defect Post-Operative Diagnosis: Other (Acute cholecystitis, intraabdominal adhesions) Surgeon: Marc Monique Anesthesia: General Specimens Removed: Gallbladder Estimated Blood Loss (mls): 100 Operative Report Dictated: Yes
[2017-07-28] MEDS ORDERED: PROMETHAZINE HCL 25 MG/1 ML VIAL IVPB PRN (15:57)
[2017-07-28] MEDS ORDERED: LACTATED RINGERS SOLUTION 1,000 ML IV SCH (16:00)
[2017-07-28] MEDS ORDERED: ENALAPRILAT DIHYDRATE 2.5 MG/2 ML VIAL IVPB ONE ×2 (16:16→18:15)
[2017-07-28 16:32] LABS: ANION GAP 9 (8-16); BLOOD UREA NITROGEN 14 mg/dL (7-18); CALCIUM 7.7 mg/dL (8.5-10.1); CHLORIDE 107 mmol/L (98-107); CO2 24 mmol/L (21-32); CREATININE 0.8 mg/dL (0.55-1.02); GLUCOSE,RANDOM 180 mg/dL (74-106); POTASSIUM 4.3 mmol/L (3.5-5.1); SODIUM 140 mmol/L (136-145)
[2017-07-28] MEDS ORDERED: DEXTROSE 5%-NORMAL SALINE 1,000 ML IV SCH (16:56)
[2017-07-28] MEDS ORDERED: ONDANSETRON 4 MG/2 ML VIAL IVPUSH PRN (16:56)
[2017-07-28 17:23] LABS: ALBUMIN 3.8 g/dl (3.4-5.0); ANION GAP 9 (8-16); BLOOD UREA NITROGEN 14 mg/dL (7-18); CALCIUM 7.8 mg/dL (8.5-10.1); CHLORIDE 104 mmol/L (98-107); CO2 26 mmol/L (21-32); CREATININE 0.9 mg/dL (0.55-1.02); GLUCOSE,RANDOM 171 mg/dL (74-106); SGOT/AST 88 U/L (15-37); SGPT/ALT 64 U/L (12-78); SODIUM 139 mmol/L (136-145)
[2017-07-28 17:24] LABS: ALK PHOS 54 U/L (45-117); BILIRUBIN,TOTAL 0.5 mg/dL (0.2-1.0)
[2017-07-28 17:30] LABS: HEMATOCRIT 40.5 % (32.4-45.2); HEMOGLOBIN 13.1 GM/dL (10.7-15.3); MCH 28.9 pg (25.7-33.7); MCHC 32.4 g/dl (32.0-36.0); MEAN PLT VOLUME 9.6 fl (7.5-11.1); PLATELET COUNT 220 K/MM3 (134-434); RBC 4.55 M/mm3 (3.60-5.2); RDW 13.5 % (11.6-15.6); WHITE BLOOD COUNT 12.4 K/mm3 (4.0-10.0)
--- NOTE | 2017-07-28 17:36 | PN ---
Progress Note (short form) - Note Progress Note: CC: pre-op clearance S: transferred to [facility] from [facility] for surgery today. Per report, patient with frequent pvc's during surgery and also with 20 minute run of bigeminy --> given IV BB. Ultimately returned to SR after IV lopressor. Received additional PO metoprolol. Required IV meds for HTN. Otherwise tolerated surgery, no complications. currently recovering well. pain is managed. no cp, palps, sob, dizziness. + gassy feeling. Current Medications Hydromorphone HCl (Dilaudid Injection -) 0.5 mg IVPB Q4H PRN PRN Reason: PAIN LEVEL 6-10 Dextrose/Sodium Chloride (D5-Ns -) 1,000 mls @ 42 mls/hr IV ASDIR [facility] Piperacillin Sod/Tazobactam (Sod 3.375 gm/ Dextrose) 50 mls @ 100 mls/hr IVPB Q8H-IV [facility] PRN Reason: Protocol Insulin Aspart (Novolog Vial Sliding Scale -) 1 vial SQ ACHS [facility] PRN Reason: Protocol Metoprolol Succinate (Toprol Xl -) 25 mg PO BID [facility] Non-Formulary Medication (Patient's Own Med) 1 each OD HS [facility] Ondansetron HCl (Zofran Injection) 4 mg IVPUSH Q8H PRN PRN Reason: NAUSEA Pantoprazole Sodium (Protonix Iv) 40 mg IVPUSH DAILY [facility] Vital Signs - 24 hr 07/27/17 07/27/17 07/27/17 19:00 19:26 20:29 Temperature 98.1 F Pulse Rate 72 Respiratory 18 18 20 Rate Blood Pressure 144/77 O2 Sat by Pulse Oximetry (%) 07/27/17 07/28/17 07/28/17 22:00 02:00 06:00 Temperature 98.7 F 98.3 F Pulse Rate 76 60 Respiratory 18 18 Rate Blood Pressure 141/96 141/84 O2 Sat by Pulse 98 98 98 Oximetry (%) 07/28/17 07/28/17 07/28/17 08:33 10:00 13:00 Temperature 98.7 F Pulse Rate 78 74 Respiratory 18 18 18 Rate Blood Pressure 136/66 162/69 O2 Sat by Pulse 98 Oximetry (%) 07/28/17 14:00 Temperature 97.5 F L Pulse Rate Respiratory Rate Blood Pressure O2 Sat by Pulse Oximetry (%) Intake & Output 07/26/17 07/27/17 07/28/17 07/29/17 07:59 07:59 07:59 07:59 Intake Total 344 2102 Output Total 100 Balance 344 2001 Weight 103 lb 1.6 oz nad, appears younger than stated age jvd flat, neck supple rrr. nl s1, s2 no mrg ctab, nl effort + bs soft nt, mild tenderness ext without e/c/c + dp/pt, no carotid bruits aaox3 no jaundice, diaphoresis. CBC, BMP 07/28/17 16:25 07/28/17 16:25 Laboratory Tests 07/28/17 07/28/17 15:21 16:25 Total Bilirubin 0.5 D AST 88 H ALT 64 Alkaline Phosphatase 54 Troponin I < 0.02 Albumin 3.8 ekg: sr, rsr' variant. no ischemic ekg changes tele: SR rare pvc's. echo 07/2017: nl lv size/fn. E, A reversal. RV not well seen. mild-mod ar, 1+ mr/tr. rvsp 30-40. cxr: wnl. ASSESSMENT/PLAN 82 yo active woman with h/o of htn, hl, niddm, hypothyroid who p/w abdominal pain and found to have acute cholecystitis. Pre-op clearance/frequent pvc's. - Based on RCRI and excellent functional status, patient estimated to have a low risk for richi-operative CV events. No further testing recommended prior to surgery. Patient and family counseled on risk. - 07/27 irregularity on cardiac exam. Tele monitor placed --> SR with frequent pvc's. changed metoprolol to long acting. lyte repletion prn. - 07/28 transferred to [facility] for surgery today. Now s/p Laparoscopic cholecystectomy, lysis of adhesions, oversewing/repair of duodenal serosal defect. During surgery had intermittent pvc's and episode of prolonged bigeminy as mentioned above. Plan for tele post-op. Will uptitrate toprol. htn -suboptimal control off of enalapril (held this morning for surgery). Now improving. Uptitrating toprol as mentioned. con't enalapril. Con't to monitor. hl - resume asa, statin when safe from GI perspective..
[2017-07-28] MEDS ORDERED: METOPROLOL TARTRATE 25 MG TABLET (FP) PO ONE (17:45)
[2017-07-28 18:00] LABS: PLATELET ESTIMATE NORMAL
[2017-07-28] MEDS ORDERED: MAG HYDROX/AL HYDROX/SIMETH 30 ML UNIT-DOSE CUP PO ONE (20:00)
[2017-07-28] MEDS ORDERED: metoPROLOL SUCCINATE 25 MG TAB.SR.24H (FP) PO ONE (21:27)
[2017-07-28] MEDS ORDERED: metoPROLOL SUCCINATE 25 MG TAB.SR.24H (FP) PO SCH (22:00)
[2017-07-28] MEDS: morphine SULFATE 4 MG/ML VIAL IVPB PRN (22:02)
[2017-07-29] MEDS: PIPERACILLIN/TAZOB 3.375 GM 3.375 GM in DEXTROSE 5%-WATER - 50 ML IVPB SCH ×3 (03:30→17:24)
[2017-07-29] MEDS ORDERED: PIPERACILLIN/TAZOBACTAM 3.375 GM VIAL IVPB ONE ×3 (05:47→17:20)
[2017-07-29] MEDS ORDERED: DEXTROSE 5%-WATER - 50 ML IVPB ONE ×3 (05:47→17:20)
[2017-07-29] MEDS: INSULIN SLIDING SCALE (NOVOLOG) 1 VIAL SQ SCH ×4 (06:01→21:31)
[2017-07-29] MEDS: morphine SULFATE 4 MG/ML VIAL IVPB PRN (06:30)
[2017-07-29 07:57] LABS: CALCIUM 7.7 mg/dL (8.5-10.1); CHLORIDE 103 mmol/L (98-107); POTASSIUM 3.7 mmol/L (3.5-5.1); SODIUM 140 mmol/L (136-145)
[2017-07-29 08:04] LABS: ALBUMIN 3.3 g/dl (3.4-5.0); ALK PHOS 48 U/L (45-117); ANION GAP 14 (8-16); BILIRUBIN,TOTAL 0.8 mg/dL (0.2-1.0); BLOOD UREA NITROGEN 12 mg/dL (7-18); CO2 23 mmol/L (21-32); CREATININE 0.9 mg/dL (0.55-1.02); GLUCOSE,RANDOM 136 mg/dL (74-106); MAGNESIUM 2.2 mg/dL (1.8-2.4); SGOT/AST 94 U/L (15-37); SGPT/ALT 69 U/L (12-78); TOT PROT 6.2 g/dl (6.4-8.2)
[2017-07-29 08:21] LABS: BASO % 0.5 % (0-2.0); EOS % 0.2 % (0-4.5); HEMATOCRIT 36.1 % (32.4-45.2); HEMOGLOBIN 11.7 GM/dL (10.7-15.3); LYMPH % 12.1 % (8-40); MCH 28.4 pg (25.7-33.7); MCHC 32.4 g/dl (32.0-36.0); MEAN CELL VOLUME 87.6 fl (80-96); MEAN PLT VOLUME 9.5 fl (7.5-11.1); MONO % 11.3 % (3.8-10.2); NEUT % 75.9 % (42.8-82.8); PLATELET COUNT 199 K/MM3 (134-434); RBC 4.12 M/mm3 (3.60-5.2); RDW 13.3 % (11.6-15.6); WHITE BLOOD COUNT 11.2 K/mm3 (4.0-10.0)
--- NOTE | 2017-07-29 08:41 | OP ---
DATE OF OPERATION: 07/28/2017 SURGEON: Marc Monique MD PREOPERATIVE DIAGNOSIS: Acute cholecystitis. POSTOPERATIVE DIAGNOSES: 1. Acute cholecystitis. 2. Intra-abdominal adhesions. 3. Duodenal serosal defect. PROCEDURES PERFORMED: 1. Laparoscopic lysis of adhesions. 2. Laparoscopic cholecystectomy. 3. Laparoscopic repair and oversewing of duodenal serosal defect. SPECIMEN: Gallbladder. ESTIMATED BLOOD LOSS: 100 mL. DRAINS: OG tube. ANESTHESIA: GET. REASON FOR PROCEDURE: This is an 82-year-old female who was found to have evidence of acute cholecystitis on ultrasound and HIDA scan. Because of this, she was consented for a laparoscopic, possible open cholecystectomy. RISKS AND BENEFITS: The risks and benefits of the procedure were explained. These included bleeding, infection, hernia, [place], DVT, PE, retained stone, bile leak, injury to surrounding structures including the liver, bowel, duodenum, bile ducts as well as other intra-abdominal organs, sepsis and as some of the complications. She understood and signed informed consents. DESCRIPTION OF PROCEDURE: The patient was placed supine on the operating room table. She underwent general endotracheal intubation. The abdomen was prepped and draped in the usual sterile fashion. A timeout was performed. A supraumbilical incision was made, and a Veress needle inserted. Pneumoperitoneum was established. Subsequently, the Veress needle was removed. A 5-mm optical trocar was placed under direct visualization with the laparoscope. A 5-mm trocar was then placed in the subxiphoid area. Two further 5-mm trocars were placed in the right subcostal region. The supraumbilical 5-mm trocar was replaced with a 12-mm trocar. The patient was placed in reverse Trendelenburg, right side up position. Immediately, the gallbladder was noted to be inflamed, distended and edematous. Needle decompression needed to be performed and hydrops was noted. The gallbladder was suctioned and then grasped cephalad and laterally. The gallbladder was noted to be intrahepatic and the liver was noted to be fibrotic. There were dense adhesions from the liver to the surrounding structures, including the omentum and bowel, which were carefully taken down. There was a serosal defect noted in the duodenum, which was oversewn with an Endo Stitch in a Lembert fashion. The cystic duct followed by the cystic artery were circumferentially dissected, clipped and transected. The gallbladder was removed off the liver bed using electrocautery. Hemostasis in the liver bed was attained using electrocautery. Copious irrigation and suction were performed until clear. The gallbladder was placed in an Endo Catch bag and removed from the abdominal cavity. Further copious irrigation and suction was performed until dry. A Surgicel dressing was placed to aid with hemostasis in the liver bed. The pneumoperitoneum was then desufflated. All trocars were removed. The fascia was then closed using three 0 Vicryl sutures in a [id number] fashion. The deep dermal tissue was closed using 3-0 Vicryl suture. Then 4-0 Biosyn was used to close all incisions, and sterile dressings were applied. The patient tolerated the procedure well. She was transferred to telemetry due to bigeminy noted towards the end of the case, which resolved by the time she came to the recovery room. Description of the findings were explained to the patient and the patient's family. Enrrique CHOPRA/[id number]
[2017-07-29] MEDS: metoPROLOL SUCCINATE 25 MG TAB.SR.24H (FP) PO SCH ×2 (09:38→21:31)
[2017-07-29] MEDS ORDERED: PANTOPRAZOLE SODIUM 40 MG VIAL IVPUSH SCH (10:00)
[2017-07-29] MEDS ORDERED: ENALAPRIL MALEATE 10 MG TABLET (FP) PO SCH (10:00)
--- NOTE | 2017-07-29 10:04 | PN ---
Progress Note, Physician Chief Complaint: constipation persisting, minimal pain in the right upper quadrant radiating in the back, able to tolerate po liquid diet History of Present Illness: 82 yo female admitted with RUQ pain, nausea and elevated blood pressure. US and HIDA scan diagnosed gallstone cholecystitis with a 7 mm impacted stone. The patient had uncomplicated laparoscopic cholecystectomy yesterday. She had an uneventful night without any pain, nausea or fever. - Current Medication List Current Medications: Active Medications Enalapril Maleate (Vasotec -) 40 mg PO DAILY [facility] Dextrose/Sodium Chloride (D5-Ns -) 1,000 mls @ 42 mls/hr IV ASDIR [facility] Last Admin: 07/28/17 22:11 Dose: 42 mls/hr Piperacillin Sod/Tazobactam (Sod 3.375 gm/ Dextrose) 50 mls @ 100 mls/hr IVPB Q8H-IV [facility] PRN Reason: Protocol Last Admin: 07/29/17 09:39 Dose: 100 mls/hr Insulin Aspart (Novolog Vial Sliding Scale -) 1 vial SQ ACHS [facility] PRN Reason: Protocol Last Admin: 07/29/17 06:01 Dose: Not Given Metoprolol Succinate (Toprol Xl -) 50 mg PO BID [facility] Last Admin: 07/29/17 09:38 Dose: 50 mg Morphine Sulfate (Morphine Sulfate) 0.5 mg IVPB Q4H PRN PRN Reason: PAIN LEVEL 6-10 Last Admin: 07/29/17 06:30 Dose: 0.5 mg Non-Formulary Medication (Patient's Own Med) 1 each OD HS [facility] Ondansetron HCl (Zofran Injection) 4 mg IVPUSH Q8H PRN PRN Reason: NAUSEA Pantoprazole Sodium (Protonix Iv) 40 mg IVPUSH DAILY [facility] Last Admin: 07/29/17 09:39 Dose: 40 mg - Objective Vital Signs: Vital Signs Temperature 97.8 F 07/29/17 05:56 Pulse Rate 72 07/29/17 05:56 Respiratory Rate 20 07/29/17 05:56 Blood Pressure 166/63 07/29/17 05:56 O2 Sat by Pulse Oximetry (%) 99 07/28/17 21:29 Constitutional: Yes: No Distress, Calm Eyes: Yes: Conjunctiva Clear, EOM Intact HENT: Yes: Atraumatic, Normocephalic Neck: Yes: Supple, Trachea Midline Cardiovascular: Yes: Regular Rate and Rhythm, S1, S2 Respiratory: Yes: Regular, CTA Bilaterally Gastrointestinal: Yes: Hypoactive Bowel Sounds (in all quadrants), Tenderness ( diffusely) ...Rectal Exam: Yes: Deferred Breast(s): Yes: WNL Musculoskeletal: Yes: Other (weakness in bothe lower extremities) Extremities: No: Calf Tenderness Edema: No Peripheral Pulses WNL: Yes Integumentary: Yes: WNL Wound/Incision: Yes: Other (glued incisions on anterior abdomnal wall) Neurological: Yes: Alert, Oriented Psychiatric: Yes: Alert, Oriented Labs: CBC, BMP 07/29/17 06:00 07/29/17 06:00 INR, PTT INR 0.97 (0.82-1.09) 07/27/17 00:00 Problem List - Problems (1) Acute cholecystitis due to biliary calculus Assessment/Plan: liquid diet Protonix po, d/c iv fluids MOM for constipation Code(s): K80.00 - CALCULUS OF GALLBLADDER W ACUTE CHOLECYST W/O OBSTRUCTION (2) Diabetes mellitus type 2 in nonobese Assessment/Plan: start glucophage in am accucheckes with ELY Code(s): E11.9 - TYPE 2 DIABETES MELLITUS WITHOUT COMPLICATIONS (3) Hypothyroidism Assessment/Plan: restart Synthroid Code(s): E03.9 - HYPOTHYROIDISM, UNSPECIFIED (4) HTN (hypertension) Assessment/Plan: toprol 50 mg bid add Enalapril 40 mg daily Code(s): I10 - ESSENTIAL (PRIMARY) HYPERTENSION
[2017-07-29 10:49] LABS: HEMATOCRIT 35.9 % (32.4-45.2); HEMOGLOBIN 11.6 GM/dL (10.7-15.3); MCH 28.2 pg (25.7-33.7); MCHC 32.3 g/dl (32.0-36.0); MEAN CELL VOLUME 87.4 fl (80-96); MEAN PLT VOLUME 8.9 fl (7.5-11.1); PLATELET COUNT 211 K/MM3 (134-434); RBC 4.11 M/mm3 (3.60-5.2); RDW 13.3 % (11.6-15.6); WHITE BLOOD COUNT 12.6 K/mm3 (4.0-10.0)
[2017-07-29] MEDS: ENALAPRIL MALEATE 10 MG TABLET (FP) PO SCH (11:04)
[2017-07-29] MEDS: PANTOPRAZOLE 40 MG TABLET (FP) PO SCH (11:04)
--- NOTE | 2017-07-29 11:51 | PN ---
Progress Note (short form) - Note Progress Note: CC: pre-op clearance S: currently recovering well. pain is managed. no cp, palps, sob, dizziness. Current Medications Generic Name Dose Route Start Last Admin Trade Name Freq PRN Reason Stop Dose Admin Enalapril Maleate 40 mg 07/29/17 10:00 07/29/17 11:04 Vasotec - PO 40 mg DAILY [facility] Administration Dextrose/Sodium Chloride 1,000 mls @ 42 mls/hr 07/28/17 16:56 07/28/17 22:11 D5-Ns - IV 07/29/17 14:00 42 mls/hr ASDIR [facility] Administration Piperacillin Sod/Tazobactam 50 mls @ 100 mls/hr 07/28/17 18:00 07/29/17 09:39 Sod 3.375 gm/ Dextrose IVPB 100 mls/hr Q8H-IV [facility] Administration Protocol Insulin Aspart 1 vial 07/28/17 22:00 07/29/17 06:01 Novolog Vial Sliding Scale - SQ Not Given ACHS [facility] Protocol Metoprolol Succinate 50 mg 07/29/17 10:00 07/29/17 09:38 Toprol Xl - PO 50 mg BID [facility] Administration Morphine Sulfate 0.5 mg 07/28/17 16:56 07/29/17 06:30 Morphine Sulfate IVPB 0.5 mg Q4H PRN Administration PAIN LEVEL 6-10 Non-Formulary Medication 1 each 07/28/17 22:00 Patient's Own Med OD HS [facility] Ondansetron HCl 4 mg 07/28/17 16:56 Zofran Injection IVPUSH Q8H PRN NA[facility] Pantoprazole Sodium 40 mg 07/29/17 10:15 07/29/17 11:04 Protonix - PO Not Given DAILY [facility] Vital Signs Period Temp Pulse Resp BP Sys/Moore Pulse Ox Last 24 Hr 97.4 F-98.3 F 58-85 16-20 127-186/60-100 94-100 nad, jvd flat, neck supple rrr. nl s1, s2 no mrg ctab, nl effort + bs soft nt, mild tenderness ext without e/c/c aaox3 no jaundice, diaphoresis. CBC, BMP 07/29/17 10:43 07/29/17 06:00 ekg: sr, rsr' variant. no ischemic ekg changes tele: SR rare pvc's. echo 07/2017: nl lv size/fn. E, A reversal. RV not well seen. mild-mod ar, 1+ mr/tr. rvsp 30-40. cxr: wnl. ASSESSMENT/PLAN 82 yo active woman with h/o of htn, hl, niddm, hypothyroid who p/w abdominal pain and found to have acute cholecystitis. Pre-op clearance/frequent pvc's. - Based on RCRI and excellent functional status, patient estimated to have a low risk for richi-operative CV events. No further testing recommended prior to surgery. Patient and family counseled on risk. - 07/27 irregularity on cardiac exam. Tele monitor placed --> SR with frequent pvc's. changed metoprolol to long acting. lyte repletion prn. - 07/28 transferred to [facility] for surgery today. Now s/p Laparoscopic cholecystectomy, lysis of adhesions, oversewing/repair of duodenal serosal defect. During surgery had intermittent pvc's and episode of prolonged bigeminy as mentioned above. Plan for tele post-op. Will uptitrate toprol. -07/29: echo with nl lvef, only occasional pvcs on tele. benign, continue bb htn -cont current meds hl - resume asa, statin when safe from GI perspective.. cardiac corral stable
--- NOTE | 2017-07-29 13:35 | PN ---
Progress Note (short form) - Note Progress Note: POD 1 Pain controlled with medication Vital Signs Period Temp Pulse Resp BP Sys/Moore Pulse Ox Last 24 Hr 97.4 F-98.3 F 58-85 16-20 127-186/60-100 94-100 Abd soft, dressing dry CBC,CMP WBC 12.6 K/mm3 (4.0-10.0) H 07/29/17 10:43 RBC 4.11 M/mm3 (3.60-5.2) 07/29/17 10:43 Hgb 11.6 GM/dL (10.7-15.3) 07/29/17 10:43 Hct 35.9 % (32.4-45.2) 07/29/17 10:43 MCV 87.4 fl (80-96) 07/29/17 10:43 MCH 28.2 pg (25.7-33.7) 07/29/17 10:43 MCHC 32.3 g/dl (32.0-36.0) 07/29/17 10:43 RDW 13.3 % (11.6-15.6) 07/29/17 10:43 Plt Count 211 K/MM3 (134-434) 07/29/17 10:43 MPV 8.9 fl (7.5-11.1) 07/29/17 10:43 Neutrophils % 75.9 % (42.8-82.8) D 07/29/17 06:00 Neutrophils % (Manual) 83.7 % (42.8-82.8) H 07/28/17 16:25 Band Neutrophils % 4.4 % 07/28/17 16:25 Lymphocytes % 12.1 % (8-40) D 07/29/17 06:00 Lymphocytes % (Manual) 6.5 % (8-40) L 07/28/17 16:25 Monocytes % 11.3 % (3.8-10.2) H 07/29/17 06:00 Monocytes % (Manual) 5 % (3.8-10.2) 07/28/17 16:25 Eosinophils % 0.2 % (0-4.5) D 07/29/17 06:00 Eosinophils % (Manual) 0.0 % (0-4.5) 07/28/17 16:25 Basophils % 0.5 % (0-2.0) 07/29/17 06:00 Basophils % (Manual) 0.0 % (0-2.0) 07/28/17 16:25 Myelocytes % (Man) 0 % (0-2) 07/28/17 16:25 Promyelocytes % (Man) 0 % (0-2) 07/28/17 16:25 Blast Cells % (Manual) 0 % (0-0) 07/28/17 16:25 Nucleated RBC % 0 % (0-0) 07/28/17 16:25 Metamyelocytes 0 % (0-2) 07/28/17 16:25 Platelet Estimate Normal 07/28/17 16:25 Sodium 140 mmol/L (136-145) 07/29/17 06:00 Potassium 3.7 mmol/L (3.5-5.1) 07/29/17 06:00 Chloride 103 mmol/L (98-107) 07/29/17 06:00 Carbon Dioxide 23 mmol/L (21-32) 07/29/17 06:00 Anion Gap 14 (8-16) 07/29/17 06:00 BUN 12 mg/dL (7-18) 07/29/17 06:00 Creatinine 0.9 mg/dL (0.55-1.02) 07/29/17 06:00 Creat Clearance w eGFR 59.80 (>60) 07/29/17 06:00 POC Glucometer 215 UNITS (80-120) 07/29/17 11:50 Random Glucose 136 mg/dL (74-106) H 07/29/17 06:00 Hemoglobin A1c % 7.0 % (4.8-6.0) H 07/28/17 07:30 Calcium 7.7 mg/dL (8.5-10.1) L 07/29/17 06:00 Phosphorus 2.6 mg/dl (2.5-4.6) 07/27/17 09:30 Magnesium 2.2 mg/dL (1.8-2.4) 07/29/17 06:00 Total Bilirubin 0.8 mg/dL (0.2-1.0) D 07/29/17 06:00 AST 94 U/L (15-37) H 07/29/17 06:00 ALT 69 U/L (12-78) 07/29/17 06:00 Alkaline Phosphatase 48 U/L (45-117) 07/29/17 06:00 LD Total 134 U/L (84-246) 07/28/17 07:30 Creatine Kinase 42 IU/L (26-192) 07/27/17 09:30 Troponin I < 0.02 ng/ml (0.00-0.05) 07/28/17 15:21 Total Protein 6.2 g/dl (6.4-8.2) L 07/29/17 06:00 Albumin 3.3 g/dl (3.4-5.0) L 07/29/17 06:00 Triglycerides 91 mg/dL (35-160) 07/28/17 08:00 Cholesterol 183 mg/dL (50-200) 07/28/17 08:00 Total LDL Cholesterol 100 mg/dL (5-100) 07/28/17 08:00 HDL Cholesterol 80 mg/dl (29-89) D 07/28/17 08:00 Lipase 214 U/L (73-393) 07/27/17 00:00 TSH 4.28 uIU/ml (0.358-3.74) H 07/28/17 07:30 Low fat diet Ambulate Antibiotics per ID- would complete a 7-10 day course due to intraaoperative findings Problem List - Problems (1) Acute cholecystitis due to biliary calculus Code(s): K80.00 - CALCULUS OF GALLBLADDER W ACUTE CHOLECYST W/O OBSTRUCTION
--- NOTE | 2017-07-29 14:47 | EKG ---
Test Reason : Blood Pressure : / mmHG Vent. Rate : 065 BPM Atrial Rate : 065 BPM P-R Int : 188 ms QRS Dur : 084 ms QT Int : 454 ms P-R-T Axes : 068 029 063 degrees QTc Int : 472 ms SINUS RHYTHM WITH OCCASIONAL PREMATURE VENTRICULAR COMPLEXES LOW VOLTAGE QRS T WAVE ABNORMALITY, CONSIDER ANTERIOR ISCHEMIA PROLONGED QT ABNORMAL ECG WHEN COMPARED WITH ECG OF 28-JUL-2017 09:11, T WAVE INVERSION NOW EVIDENT IN ANTERIOR LEADS Confirmed by EMMANUEL SALCEDO MD ([id number]) on 07/29/2017 2:47:15 PM Referred By: PRATIK Confirmed By:EMMANUEL SALCEDO MD
--- NOTE | 2017-07-29 15:20 | PN ---
Progress Note (short form) - Note Progress Note: Anesthesia post op note, POD#1 S/P lap Cholecystectomy under GETA. PVC s preop and intraop with Bigemini intraop . Post op care at telemetry. Patient seen and examined. VSS. Followed by frankfurter inspector , stable. No apparent post anesthesia complications.
[2017-07-29] MEDS ORDERED: MAGNESIUM HYDROX 2400MG/30ML ORAL SUSPENSION 30 ML CUP PO ONE (17:36)
[2017-07-29] MEDS ORDERED: ACETAMINOPHEN 325 MG TABLET (FP) PO PRN (17:41)
[2017-07-30] MEDS ORDERED: DEXTROSE 5%-WATER - 50 ML IVPB ONE ×3 (01:38→17:06)
[2017-07-30] MEDS ORDERED: PIPERACILLIN/TAZOBACTAM 3.375 GM VIAL IVPB ONE ×3 (01:38→17:06)
[2017-07-30] MEDS: PIPERACILLIN/TAZOB 3.375 GM 3.375 GM in DEXTROSE 5%-WATER - 50 ML IVPB SCH ×3 (01:41→17:12)
[2017-07-30] MEDS: INSULIN SLIDING SCALE (NOVOLOG) 1 VIAL SQ SCH ×4 (06:10→22:03)
[2017-07-30 06:24] LABS: BASO % 0.5 % (0-2.0); EOS % 0.4 % (0-4.5); HEMATOCRIT 30.3 % (32.4-45.2); HEMOGLOBIN 10.3 GM/dL (10.7-15.3); LYMPH % 18.7 % (8-40); MCH 29.4 pg (25.7-33.7); MCHC 33.9 g/dl (32.0-36.0); MEAN CELL VOLUME 86.7 fl (80-96); MEAN PLT VOLUME 9.4 fl (7.5-11.1); MONO % 7.4 % (3.8-10.2); PLATELET COUNT 205 K/MM3 (134-434); RBC 3.49 M/mm3 (3.60-5.2); WHITE BLOOD COUNT 8.1 K/mm3 (4.0-10.0)
[2017-07-30 06:53] LABS: ALBUMIN 3.1 g/dl (3.4-5.0); ANION GAP 6 (8-16); BLOOD UREA NITROGEN 10 mg/dL (7-18); CALCIUM 7.7 mg/dL (8.5-10.1); CHLORIDE 106 mmol/L (98-107); CO2 28 mmol/L (21-32); GLUCOSE,RANDOM 103 mg/dL (74-106); POTASSIUM 3.5 mmol/L (3.5-5.1); SODIUM 140 mmol/L (136-145)
[2017-07-30 06:55] LABS: ALK PHOS 61 U/L (45-117); BILIRUBIN,TOTAL 0.9 mg/dL (0.2-1.0); CREATININE 0.8 mg/dL (0.55-1.02); SGOT/AST 83 U/L (15-37); SGPT/ALT 63 U/L (12-78); TOT PROT 5.9 g/dl (6.4-8.2)
[2017-07-30] MEDS ORDERED: LEVOTHYROXINE NA 88 MCG TABLET (FP) PO SCH (07:00)
[2017-07-30] MEDS: PANTOPRAZOLE 40 MG TABLET (FP) PO SCH (09:27)
[2017-07-30] MEDS: ENALAPRIL MALEATE 10 MG TABLET (FP) PO SCH (09:27)
[2017-07-30] MEDS: metoPROLOL SUCCINATE 25 MG TAB.SR.24H (FP) PO SCH ×2 (09:27→22:01)
--- NOTE | 2017-07-30 11:42 | PN ---
Progress Note (short form) - Note Progress Note: feels well no complaints still no BM tolerating diet s/p lap choly 07/28 Vital Signs Period Temp Pulse Resp BP Sys/Moore Pulse Ox Last 24 Hr 98.1 F-99.5 F 65-76 18-20 134-146/52-65 96-96 cor-rrr lungs clear abd soft,nt ext no edema 07/30/17 06:00 07/30/17 06:00 Microbiology 07/27/17 09:08 Blood - Peripheral Venous Blood Culture - Preliminary NO GROWTH OBTAINED AFTER 72 HOURS, INCUBATION TO CONTINUE FOR 2 DAYS. 07/27/17 09:00 Blood - Peripheral Venous Blood Culture - Preliminary NO GROWTH OBTAINED AFTER 72 HOURS, INCUBATION TO CONTINUE FOR 2 DAYS. 07/27/17 10:00 Urine - Urine Clean Catch Urine Culture - Final NO GROWTH OBTAINED a/p doing well s/p jeffy manjarrez d/w dr niño- he wishes to continue her on antibiotics post op day #3 zosyn could switch to po augmentin to complete 7 days when ready for discharge please call back if needed
--- NOTE | 2017-07-30 13:48 | PN ---
Progress Note (short form) - Note Progress Note: No acute events Pain controlled On diet Vital Signs Period Temp Pulse Resp BP Sys/Moore Pulse Ox Last 24 Hr 98.1 F-99.5 F 65-76 18-20 134-146/52-65 96-96 Abd soft CBC,CMP WBC 8.1 K/mm3 (4.0-10.0) D 07/30/17 06:00 RBC 3.49 M/mm3 (3.60-5.2) L 07/30/17 06:00 Hgb 10.3 GM/dL (10.7-15.3) L D 07/30/17 06:00 Hct 30.3 % (32.4-45.2) L D 07/30/17 06:00 MCV 86.7 fl (80-96) 07/30/17 06:00 MCH 29.4 pg (25.7-33.7) 07/30/17 06:00 MCHC 33.9 g/dl (32.0-36.0) 07/30/17 06:00 RDW 13.0 % (11.6-15.6) 07/30/17 06:00 Plt Count 205 K/MM3 (134-434) 07/30/17 06:00 MPV 9.4 fl (7.5-11.1) 07/30/17 06:00 Neutrophils % 73.0 % (42.8-82.8) 07/30/17 06:00 Neutrophils % (Manual) 83.7 % (42.8-82.8) H 07/28/17 16:25 Band Neutrophils % 4.4 % 07/28/17 16:25 Lymphocytes % 18.7 % (8-40) D 07/30/17 06:00 Lymphocytes % (Manual) 6.5 % (8-40) L 07/28/17 16:25 Monocytes % 7.4 % (3.8-10.2) 07/30/17 06:00 Monocytes % (Manual) 5 % (3.8-10.2) 07/28/17 16:25 Eosinophils % 0.4 % (0-4.5) D 07/30/17 06:00 Eosinophils % (Manual) 0.0 % (0-4.5) 07/28/17 16:25 Basophils % 0.5 % (0-2.0) 07/30/17 06:00 Basophils % (Manual) 0.0 % (0-2.0) 07/28/17 16:25 Myelocytes % (Man) 0 % (0-2) 07/28/17 16:25 Promyelocytes % (Man) 0 % (0-2) 07/28/17 16:25 Blast Cells % (Manual) 0 % (0-0) 07/28/17 16:25 Nucleated RBC % 0 % (0-0) 07/28/17 16:25 Metamyelocytes 0 % (0-2) 07/28/17 16:25 Platelet Estimate Normal 07/28/17 16:25 Sodium 140 mmol/L (136-145) 07/30/17 06:00 Potassium 3.5 mmol/L (3.5-5.1) 07/30/17 06:00 Chloride 106 mmol/L (98-107) 07/30/17 06:00 Carbon Dioxide 28 mmol/L (21-32) 07/30/17 06:00 Anion Gap 6 (8-16) L 07/30/17 06:00 BUN 10 mg/dL (7-18) 07/30/17 06:00 Creatinine 0.8 mg/dL (0.55-1.02) 07/30/17 06:00 Creat Clearance w eGFR > 60 (>60) 07/30/17 06:00 POC Glucometer 158 UNITS (80-120) 07/30/17 11:30 Random Glucose 103 mg/dL (74-106) 07/30/17 06:00 Hemoglobin A1c % 7.0 % (4.8-6.0) H 07/28/17 07:30 Calcium 7.7 mg/dL (8.5-10.1) L 07/30/17 06:00 Phosphorus 2.6 mg/dl (2.5-4.6) 07/27/17 09:30 Magnesium 2.2 mg/dL (1.8-2.4) 07/29/17 06:00 Total Bilirubin 0.9 mg/dL (0.2-1.0) 07/30/17 06:00 AST 83 U/L (15-37) H 07/30/17 06:00 ALT 63 U/L (12-78) 07/30/17 06:00 Alkaline Phosphatase 61 U/L (45-117) 07/30/17 06:00 LD Total 134 U/L (84-246) 07/28/17 07:30 Creatine Kinase 42 IU/L (26-192) 07/27/17 09:30 Troponin I < 0.02 ng/ml (0.00-0.05) 07/28/17 15:21 Total Protein 5.9 g/dl (6.4-8.2) L 07/30/17 06:00 Albumin 3.1 g/dl (3.4-5.0) L 07/30/17 06:00 Triglycerides 91 mg/dL (35-160) 07/28/17 08:00 Cholesterol 183 mg/dL (50-200) 07/28/17 08:00 Total LDL Cholesterol 100 mg/dL (5-100) 07/28/17 08:00 HDL Cholesterol 80 mg/dl (29-89) D 07/28/17 08:00 Lipase 214 U/L (73-393) 07/27/17 00:00 TSH 4.28 uIU/ml (0.358-3.74) H 07/28/17 07:30 Diet as tolerated Ambulate Antibiotics Problem List - Problems (1) Acute cholecystitis due to biliary calculus Code(s): K80.00 - CALCULUS OF GALLBLADDER W ACUTE CHOLECYST W/O OBSTRUCTION
[2017-07-30] MEDS ORDERED: POTASSIUM CHLORIDE TABS 20 MEQ TABLET.ER (FP) PO ONE (16:42)
--- NOTE | 2017-07-30 16:44 | PN ---
Progress Note (short form) - Note Progress Note: CC: pre-op clearance S: currently recovering well. pain is managed. no cp, palps, sob, dizziness. Current Medications Acetaminophen (Tylenol -) 650 mg PO Q4H PRN PRN Reason: PAIN LEVEL 1-5 Enalapril Maleate (Vasotec -) 40 mg PO DAILY [facility] Last Admin: 07/30/17 09:27 Dose: 40 mg Piperacillin Sod/Tazobactam (Sod 3.375 gm/ Dextrose) 50 mls @ 100 mls/hr IVPB Q8H-IV ANGELICA PRN Reason: Protocol Last Admin: 07/30/17 09:27 Dose: 100 mls/hr Insulin Aspart (Novolog Vial Sliding Scale -) 1 vial SQ ACHS ANGELICA PRN Reason: Protocol Last Admin: 07/30/17 12:37 Dose: Not Given Levothyroxine Sodium (Synthroid -) 88 mcg PO DAILY@0700 [facility] Last Admin: 07/30/17 06:12 Dose: 88 mcg Metoprolol Succinate (Toprol Xl -) 50 mg PO BID [facility] Last Admin: 07/30/17 09:27 Dose: 50 mg Morphine Sulfate (Morphine Sulfate) 0.5 mg IVPB Q4H PRN PRN Reason: PAIN LEVEL 6-10 Last Admin: 07/29/17 06:30 Dose: 0.5 mg Non-Formulary Medication (Patient's Own Med) 1 each OD HS [facility] Ondansetron HCl (Zofran Injection) 4 mg IVPUSH Q8H PRN PRN Reason: NAUSEA Pantoprazole Sodium (Protonix -) 40 mg PO DAILY [facility] Last Admin: 07/30/17 09:27 Dose: 40 mg Potassium Chloride (K-Dur -) 40 meq PO ONCE ONE Stop: 07/30/17 16:43 Vital Signs - 24 hr 07/29/17 07/29/17 07/29/17 18:00 20:07 21:26 Temperature 98.1 F 98.3 F Pulse Rate 65 71 Respiratory 18 20 Rate Blood Pressure 136/62 134/63 O2 Sat by Pulse 96 Oximetry (%) 07/30/17 07/30/17 07/30/17 02:00 05:40 08:57 Temperature 99.5 F 98.8 F Pulse Rate 65 74 Respiratory 20 20 20 Rate Blood Pressure 143/65 145/52 O2 Sat by Pulse 96 Oximetry (%) 07/30/17 09:15 Temperature Pulse Rate 76 Respiratory 18 Rate Blood Pressure 146/60 O2 Sat by Pulse Oximetry (%) Intake & Output 07/28/17 07/29/17 07/30/17 07/31/17 07:59 07:59 07:59 07:59 Intake Total 344 2320 980 Output Total 100 Balance 344 2220 980 nad, jvd flat, neck supple rrr. nl s1, s2 no mrg ctab, nl effort + bs soft nt, mild tenderness ext without e/c/c aaox3 no jaundice, diaphoresis. CBC, BMP 07/30/17 06:00 07/30/17 06:00 ekg: sr, rsr' variant. no ischemic ekg changes tele: SR, freq pvc's, bigeminy. echo 07/2017: nl lv size/fn. E, A reversal. RV not well seen. mild-mod ar, 1+ mr/tr. rvsp 30-40. cxr: wnl. ASSESSMENT/PLAN 82 yo active woman with h/o of htn, hl, niddm, hypothyroid who p/w abdominal pain and found to have acute cholecystitis. Pre-op clearance/frequent pvc's. - Based on RCRI and excellent functional status, patient estimated to have a low risk for richi-operative CV events. No further testing recommended prior to surgery. Patient and family counseled on risk. - 07/27 irregularity on cardiac exam. Tele monitor placed --> SR with frequent pvc's. changed metoprolol to long acting. lyte repletion prn. - 07/28 transferred to [facility] for surgery today. Now s/p Laparoscopic cholecystectomy, lysis of adhesions, oversewing/repair of duodenal serosal defect. During surgery had intermittent pvc's and episode of prolonged bigeminy as mentioned above. Plan for tele post-op. Will uptitrate toprol. -07/29: echo with nl lvef, only occasional pvcs on tele. benign, continue bb - 07/30: Increase in ventricular ectopy on tele. Asx. K repletion, con't bb. htn -cont current meds hl - resume asa, statin when safe from GI perspective..
[2017-07-30] MEDS ORDERED: MAGNESIUM HYDROX 2400MG/30ML ORAL SUSPENSION 30 ML CUP PO ONE (17:21)
--- NOTE | 2017-07-30 21:36 | PN ---
Progress Note, Physician Chief Complaint: constipation persisting, decreasing pain in the right upper quadrant radiating in the back, able to tolerate po regular diet History of Present Illness: 82 yo female admitted with RUQ pain, nausea and elevated blood pressure. US and HIDA scan diagnosed gallstone cholecystitis with a 7 mm impacted stone. The patient had uncomplicated laparoscopic cholecystectomy yesterday. She had an uneventful night without any pain, nausea or fever, she is tolerating po and is able to ambulate - Current Medication List Current Medications: Active Medications Acetaminophen (Tylenol -) 650 mg PO Q4H PRN PRN Reason: PAIN LEVEL 1-5 Docusate Sodium (Colace -) 300 mg PO HS [facility] Enalapril Maleate (Vasotec -) 40 mg PO DAILY [facility] Last Admin: 07/30/17 09:27 Dose: 40 mg Piperacillin Sod/Tazobactam (Sod 3.375 gm/ Dextrose) 50 mls @ 100 mls/hr IVPB Q8H-IV ANGELICA PRN Reason: Protocol Last Admin: 07/30/17 17:12 Dose: 100 mls/hr Insulin Aspart (Novolog Vial Sliding Scale -) 1 vial SQ ACHS ANGELICA PRN Reason: Protocol Last Admin: 07/30/17 17:12 Dose: Not Given Levothyroxine Sodium (Synthroid -) 75 mcg PO DAILY@0700 [facility] Metformin HCl (Glucophage Xr -) 500 mg PO DAILY@0700 [facility] Metoprolol Succinate (Toprol Xl -) 50 mg PO BID [facility] Last Admin: 07/30/17 09:27 Dose: 50 mg Non-Formulary Medication (Patient's Own Med) 1 each OD HS [facility] Ondansetron HCl (Zofran Injection) 4 mg IVPUSH Q8H PRN PRN Reason: NAUSEA Pantoprazole Sodium (Protonix -) 40 mg PO DAILY [facility] Last Admin: 07/30/17 09:27 Dose: 40 mg - Objective Vital Signs: Vital Signs Temperature 98.0 F 07/30/17 17:00 Pulse Rate 70 07/30/17 17:00 Respiratory Rate 18 07/30/17 17:00 Blood Pressure 156/70 07/30/17 17:00 O2 Sat by Pulse Oximetry (%) 96 07/30/17 08:57 Constitutional: Yes: No Distress, Calm Eyes: Yes: Conjunctiva Clear, EOM Intact HENT: Yes: Atraumatic, Normocephalic Neck: Yes: Supple, Trachea Midline Cardiovascular: Yes: Pulse Irregular Respiratory: Yes: Regular, CTA Bilaterally Gastrointestinal: Yes: Normal Bowel Sounds, Soft, Tenderness (present in the incision areas). No: Hemorrhoids Breast(s): Yes: WNL Extremities: No: Amputation, Calf Tenderness Edema: No Peripheral Pulses WNL: Yes Integumentary: Yes: WNL Neurological: Yes: Alert, Oriented Psychiatric: Yes: Alert, Oriented Labs: CBC, BMP 07/30/17 06:00 07/30/17 06:00 INR, PTT INR 0.97 (0.82-1.09) 07/27/17 00:00 Problem List - Problems (1) Acute cholecystitis due to biliary calculus Assessment/Plan: DAy #2 post cholecystectomy regular diet Protonix po MOM for constipation, add Colace 300 mg po hs Code(s): K80.00 - CALCULUS OF GALLBLADDER W ACUTE CHOLECYST W/O OBSTRUCTION (2) Diabetes mellitus type 2 in nonobese Assessment/Plan: start glucophage XR 500 mg in am accucheckes with ELY Code(s): E11.9 - TYPE 2 DIABETES MELLITUS WITHOUT COMPLICATIONS (3) Hypothyroidism Assessment/Plan: increase Synthroid to 75 mcg po daily Code(s): E03.9 - HYPOTHYROIDISM, UNSPECIFIED (4) HTN (hypertension) Assessment/Plan: Toprol XL 50 mg bid add Enalapril 40 mg daily continue monitoring BP Code(s): I10 - ESSENTIAL (PRIMARY) HYPERTENSION
[2017-07-30] MEDS ORDERED: DOCUSATE SODIUM 100 MG CAPSULE (FP) PO SCH (22:00)
[2017-07-31] MEDS: INSULIN SLIDING SCALE (NOVOLOG) 1 VIAL SQ SCH ×2 (06:00→12:04)
[2017-07-31 06:21] VITALS: BP 137/87; PULSE 67; TEMP 98.4
[2017-07-31] MEDS ORDERED: LEVOTHYROXINE NA 75 MCG TABLET (FP) PO SCH (07:00)
[2017-07-31] MEDS ORDERED: AMOX TR/POTASSIUM CLAVULANATE 600 MG/5 ML PO SCH (08:00)
[2017-07-31 08:07] LABS: ANION GAP 7 (8-16); BLOOD UREA NITROGEN 13 mg/dL (7-18); CALCIUM 7.7 mg/dL (8.5-10.1); CHLORIDE 107 mmol/L (98-107); CO2 26 mmol/L (21-32); CREATININE 0.7 mg/dL (0.55-1.02); GLUCOSE,RANDOM 92 mg/dL (74-106); MAGNESIUM 2.8 mg/dL (1.8-2.4); POTASSIUM 4.1 mmol/L (3.5-5.1); SODIUM 140 mmol/L (136-145)
[2017-07-31] MEDS: metoPROLOL SUCCINATE 25 MG TAB.SR.24H (FP) PO SCH (09:08)
[2017-07-31] MEDS: ENALAPRIL MALEATE 10 MG TABLET (FP) PO SCH (09:08)
--- NOTE | 2017-07-31 10:18 | PN ---
Progress Note (short form) - Note Progress Note: CC: pre-op clearance S: currently recovering well. pain is managed. no cp, palps, sob, dizziness. Current Medications Acetaminophen (Tylenol -) 650 mg PO Q4H PRN PRN Reason: PAIN LEVEL 1-5 Amoxicillin/Clavulanate Potassium (Augmentin 600 Mg/5 Ml Oral Suspension -) 600 mg PO BID@0800,1730 [facility] Stop: 08/05/17 23:59 Docusate Sodium (Colace -) 300 mg PO [facility] Last Admin: 07/30/17 22:01 Dose: 300 mg Enalapril Maleate (Vasotec -) 40 mg PO DAILY [facility] Last Admin: 07/31/17 09:08 Dose: 40 mg Insulin Aspart (Novolog Vial Sliding Scale -) 1 vial SQ ACHS [facility] PRN Reason: Protocol Last Admin: 07/31/17 06:00 Dose: Not Given Levothyroxine Sodium (Synthroid -) 75 mcg PO DAILY@0700 [facility] Last Admin: 07/31/17 06:02 Dose: 75 mcg Metformin HCl (Glucophage Xr -) 500 mg PO DAILY@0700 [facility] Last Admin: 07/31/17 06:02 Dose: 500 mg Metoprolol Succinate (Toprol Xl -) 50 mg PO BID [facility] Last Admin: 07/31/17 09:08 Dose: 50 mg Non-Formulary Medication (Patient's Own Med) 1 each OD [facility] Vital Signs - 24 hr 07/30/17 07/30/17 07/31/17 17:00 21:00 02:00 Temperature 98.0 F 97.9 F 99.3 F Pulse Rate 70 67 76 Respiratory 18 18 18 Rate Blood Pressure 156/70 141/75 123/72 O2 Sat by Pulse 95 Oximetry (%) 07/31/17 07/31/17 06:00 09:00 Temperature 98.4 F Pulse Rate 67 Respiratory 18 18 Rate Blood Pressure 137/87 O2 Sat by Pulse 97 Oximetry (%) Intake & Output 07/29/17 07/30/17 07/31/17 08/01/17 07:59 07:59 07:59 07:59 Intake Total 2320 980 730 Output Total 100 Balance 2220 980 730 nad, jvd flat, neck supple rrr. nl s1, s2 no mrg ctab, nl effort + bs soft nt, mild tenderness ext without e/c/c aaox3 no jaundice, diaphoresis. CBC, BMP 07/30/17 06:00 07/31/17 06:18 ekg: sr, rsr' variant. no ischemic ekg changes tele: SR, freq pvc's, ventricular ectopy. echo 07/2017: nl lv size/fn. E, A reversal. RV not well seen. mild-mod ar, 1+ mr/tr. rvsp 30-40. cxr: wnl. ASSESSMENT/PLAN 82 yo active woman with h/o of htn, hl, niddm, hypothyroid who p/w abdominal pain and found to have acute cholecystitis. Pre-op clearance/frequent pvc's. - Based on RCRI and excellent functional status, patient estimated to have a low risk for richi-operative CV events. No further testing recommended prior to surgery. Patient and family counseled on risk. - 07/27 irregularity on cardiac exam. Tele monitor placed --> SR with frequent pvc's. changed metoprolol to long acting. lyte repletion prn. - 07/28 transferred to [facility] for surgery today. Now s/p Laparoscopic cholecystectomy, lysis of adhesions, oversewing/repair of duodenal serosal defect. During surgery had intermittent pvc's and episode of prolonged bigeminy as mentioned above. Plan for tele post-op. Will uptitrate toprol. -07/29: echo with nl lvef, only occasional pvcs on tele. benign, continue bb - 07/30: Increase in ventricular ectopy on tele. Asx. K repletion, con't bb. - 07/31: still with frequent ventricular ectopy, bigeminy. asx. echo wnl. has plan for discharge today. Will plan on d/c with holter monitor and recommend outpatient f/u with cardiology. con't bb htn -cont current meds hl - resume asa, statin when safe from GI perspective..
--- NOTE | 2017-07-31 16:26 | PATH ---
Surgical Pathology Report Patient Name: FABIOLA PARIHS Med. Rec. #: [id number] /Age/Gender: 1935 (Age: 82) / F Account: [id number] Location: 4 W TELEMETRY U Taken: 07/28/2017 Received: 07/30/2017 Reported: 07/31/2017 Physicians: Enrrique Hudson M.D. Specimen(s) Received GALLBLADDER Clinical History Acute cholecystitis Final Diagnosis GALLBLADDER, LAPAROSCOPIC CHOLECYSTECTOMY AND LYSIS OF ADHESIONS: ACUTE AND CHRONIC CHOLECYSTITIS, ADENOMATOUS HYPERPLASIA, AND CHOLELITHIASIS. Electronically Signed Hermelinda Fermin M.D. Gross Description Received in formalin, labeled "gallbladder," is an 8.3 x 2.3 x 2.3 cm. gallbladder with a 0.2 cm. in length portion of cystic duct attached. The outer surface is jasso-maloney and varies from smooth to shaggy. The lumen contains brown blood as well as multiple black, irregular choleliths ranging from 0.3-1.1 cm in greatest dimension. The mucosa is jasso-brown and focally eroded. The fundus displays submucosal cystic spaces. The wall of the gallbladder ranges from 0.1-0.5 cm. in thickness. Combination Presser sections are submitted in 2 cassettes as follows: 1-cystic duct margin and billing representative gallbladder; 2-fundus. /07/30/2017 saudi07/30/2017
--- NOTE | 2017-08-02 13:34 | HOL ---
Hook-up date: 2017-07-31 13:05:00 Duration: 24:00:00 Test Indications: VENTRICULAR BIGEMINY Medications: 177800 QRS complexes 64426 Ventricular ectopics which represent 33 % of total QRS comp. 72 Supraventricular ectopics which represent <1 % of total QRS comp. * Paced QRS complexs which represent % of total QRS comp. * % of Time Classified as Noise VENTRICULAR ECTOPY 29983 Isolated [id number] Bigeminal Cycles 225 Couplets 5 Runs 15 Beats in Runs 3 Beats LONGEST at 102 BPM at 19:56:01 2017-07-31 3 Beats FASTEST at 118 BPM at 10:13:53 2017-08-01 SUPRAVENTRICULAR ECTOPY 65 Isolated 2 Couplets 1 Runs 3 Beats in Runs 3 Beats LONGEST at 77 BPM at 23:27:17 2017-07-31 3 Beats FASTEST at 77 BPM at 23:27:17 2017-07-31 HEART RATES 50 MIN at 23:48:52 2017-07-31 81 AVG 111 MAX at 12:37:41 2017-08-01 LONGEST RR 2.024 secs at 02:28:50 2017-08-01 SCANNED BY HOLLY WAGONER ON 08/02/17 1. Baseline sinus rhythm with avg hr 81 and range 50-111. 2. No significant pauses/bradycardia. 3. Rare isolated PACS. 4. Frequent isolated PVCS. Occasional NSVT up to 3 beats. 5. No VF, afib, aflutter, svt. 6. No diary submitted. Confirmed by ILIANA JUDGE, CINDY ([id number]) on 08/02/2017 1:34:17 PM Referred By: CARLOS RAMSAY DR Overread By: CINDY BARRIENTOS MD
== END 2017-07-31 14:23 | disposition home or self-care (01) | DRG 418 ==
LOC: FER 23:26 → FM/S 07-27 03:14 → J6S 07-27 22:24 → J4W 07-28 18:47
PROVIDERS: ADMIT Internal Medicine; ATTEND Internal Medicine
PROC: 0DNW4ZZ Release Peritoneum, Percutaneous Endoscopic Approach (ICD-10-PCS; 2017-07-28)
PROC: 0DQ94ZZ Repair Duodenum, Percutaneous Endoscopic Approach (ICD-10-PCS; 2017-07-28)
PROC: 0FN04ZZ Release Liver, Percutaneous Endoscopic Approach (ICD-10-PCS; 2017-07-28)
PROC: 0DNE4ZZ Release Large Intestine, Percutaneous Endoscopic Approach (ICD-10-PCS; 2017-07-28)
PROC: 0DNU4ZZ Release Omentum, Percutaneous Endoscopic Approach (ICD-10-PCS; 2017-07-28)
PROC: 0FT44ZZ Resection of Gallbladder, Percutaneous Endoscopic Approach (ICD-10-PCS; principal; 2017-07-28 12:34)
DX: K80.00 Calculus of gallbladder with acute cholecystitis without obstruction (principal); K82.1 Hydrops of gallbladder; K91.81 Other intraoperative complications of digestive system; I97.191 Other postprocedural cardiac functional disturbances following other surgery; E03.9 Hypothyroidism, unspecified; I10 Essential (primary) hypertension; E11.9 Type 2 diabetes mellitus without complications; M54.5 Low back pain; K59.00 Constipation, unspecified; M17.0 Bilateral primary osteoarthritis of knee; M48.02 Spinal stenosis, cervical region; E78.5 Hyperlipidemia, unspecified; K66.0 Peritoneal adhesions (postprocedural) (postinfection); R00.8 Other abnormalities of heart beat; I49.3 Ventricular premature depolarization; I49.9 Cardiac arrhythmia, unspecified; Y83.9 Surgical procedure, unspecified as the cause of abnormal reaction of the patient, or of later complication, without mention of misadventure at the time of the procedure
CPT/HCPCS: 36415; 71045-TC-FY; 76705-TC; 78226-TC; 80048; 80053; 80061; 81003; 81015; 82550; 82962; 83036; 83615; 83690; 83721; 83735; 84100; 84443; 84484; 85025; 85027; 85610; 86850; 86900; 86901; 87040; 87086; 88304-TC; 93005; 93010; 93225; 93226; 93306-TC; 94760; 97116-GP; 97161-GP; 99283-25; A9537; J7030

== ENCOUNTER 2018-09-24 19:40 | Inpatient (IN) | payer OTHER ==
[2018-09-24 20:37] LABS: EOS % 0.5 % (0-4.5); HEMATOCRIT 39.8 % (32.4-45.2); HEMOGLOBIN 12.9 GM/dl (10.7-15.3); LYMPH % 29.9 % (8-40); MCH 27.6 pg (25.7-33.7); MCHC 32.3 g/dl (32.0-36.0); MEAN CELL VOLUME 85.4 fl (80-96); MEAN PLT VOLUME 9.2 fl (7.5-11.1); MONO % 14.3 % (3.8-10.2); NEUT % 54.3 % (42.8-82.8); PLATELET COUNT 210 K/MM3 (134-434); RBC 4.67 M/mm3 (3.60-5.2); RDW 13.3 % (11.6-15.6); WHITE BLOOD COUNT 6.9 K/mm3 (4.0-10.8)
[2018-09-24 20:45] LABS: ALBUMIN 4.1 g/dl (3.4-5.0); BILIRUBIN,TOTAL 0.8 mg/dl (0.2-1); CALCIUM 8.9 mg/dl (8.5-10); CREATININE 0.9 mg/dl (0.55-1.3); POTASSIUM 4.3 mmol/L (3.5-5.1); TOT PROT 8.1 g/dl (6.4-8.2)
[2018-09-24] MEDS ORDERED: predniSONE 20 MG TABLET (UD) PO ONE (21:04)
[2018-09-24] MEDS ORDERED: ALBUTEROL SO4 2.5/IPRATROPIUM 0.5 INH SOL 3 ML VIAL.NEB. NEB ONE ×2 (21:04→21:18)
[2018-09-24] MEDS ORDERED: predniSONE 20 MG TABLET (UD) ONE (21:18)
--- NOTE | 2018-09-24 22:00 | PDOC ---
Documentation entered by London Guerrero SCRIBE, acting as scribe for Mandi Jeong MD. Mandi Jeong MD: This documentation has been prepared by the Yolanda yeboah Renju, SCRIBE, under my direction and personally reviewed by me in its entirety. I confirm that the documentation accurately reflects all work, treatment, procedures, and medical decision making performed by me. History of Present Illness - General Chief Complaint: Respiratory Stated Complaint: COUGH Time Seen by Provider: 09/24/18 19:41 History Source: Patient, Family Exam Limitations: No Limitations - History of Present Illness Initial Comments: 09/24/18 20:22 HPI The patient is an 83 year old female who presents to the emergency department, sent by her primary care provider, for evaluation of cough. Patient reports a 2 day history of productive cough with white sputum. Patient reports associated symptoms of wheezing and subjective fever this morning. She states she visited Dr. Desouza this morning, who prompted her to visit the emergency department for further evaluation and to rule out bronchitis. Patient notes she received her pneumonia vaccine last year. The patient denies chest pain, headache, dizziness, nausea, vomiting, chills, diarrhea, and constipation. PAST MEDICAL HISTORY: Hyperlipidemia, Hypertension, Hypothyroidism, Diabetes, Osteoarthritis (of the knees) PAST SURGICAL HISTORY: Appendectomy. Cholecystectomy. FAMILY HISTORY: no pertinent history SOCIAL HISTORY: Pt lives with family. MEDICATIONS: reviewed ALLERGIES: As per nursing notes PCP: Dr. Desouza Review of Systems General: (+)Fevers. No chills, no weakness, no weight loss HEENT: No change in vision. No sore throat,. No ear pain Cardiovascular: No chest pain or shortness of breath Respiratory: (+)cough. (+)wheezing. Gastrointestinal: no nausea, vomiting, diarrhea or constipation, No rectal bleeding Genitourinary: No dysuria, hematuria, or frequency Musculoskeletal: No joint or muscle pain or swelling Neurologic: No headache, vertigo, dizziness or loss of consciousness Psychiatric: nor depression Skin: No rashes or easy bruising Endocrine: no increased thirst or abnormal weight change Allergic: no skin or latex allergy All other systems reviewed and normal Physical Exam: General: Well-nourished well-developed individual, no acute distress HEENT: Throat: Normal, tonsils normal, no erythema or exudate Neck: Supple, no meningeal signs, no lymphadenopathy Eyes:Pupils equal reactive and round, extraocular motion intact Chest: Nontender to palpation Cardiac: S1-S2 normal, regular rate and rhythm, no murmurs rubs or gallops Respiratory: few Rhonchi throughout all lung gonzalez with expiratory wheezing. Abdomen: Soft, nondistended, nontender to palpation diffusely Extremities: Warm, dry, no cyanosis, clubbing, or edema Skin: No rashes Neuro: Alert and oriented x3, nonfocal exam, grossly intact, normal gait Psych: Normal mood and affect 09/24/18 20:30 Assessment and plan: This is an 83-year-old female who comes in complaining of shortness of breath and wheezing. Patient was at her primary care doctor today and told to come to the ED because of the wheezing. Patient here in the ED is comfortable but noted to be wheezing as well as some questionable rhonchi on exam. Patient given DuoNeb and a workup initiated including CBC, comp, EKG, chest x- ray and patient also given prednisone. Patient's EKG showed normal sinus rhythm at a rate of [address]-T wave changes but a left axis deviation. Chest X x-ray shows no acute pathology 22:00 Reevaluation post DuoNeb patient's wheezing as much resolved and patient feels much better. Patient's workup was negative for any abnormalities including patient had a normal white count with no left shift, normal chemistries normal EKG and normal chest x-ray. Description for albuterol inhaler and prednisone sent to patient's pharmacy and patient discharged home with her daughter Past History - Past Medical History Allergies/Adverse Reactions: Allergies Allergy/AdvReac Type Severity Reaction Status Date / Time black pepper Allergy Verified 09/24/18 19:46 clopidogrel [From Plavix] Allergy Verified 09/24/18 19:46 gabapentin Allergy Verified 09/24/18 19:46 montelukast [From Singulair] Allergy Verified 09/24/18 19:46 shellfish derived Allergy Verified 09/24/18 19:46 sulfamethoxazole Allergy Verified 09/24/18 19:46 [From Bactrim] trimethoprim [From Bactrim] Allergy Verified 09/24/18 19:46 mendy Allergy Uncoded 10/09/17 19:23 Home Medications: Ambulatory Orders Docusate Sodium [Colace -] 100 mg PO TID #90 capsule 07/29/17 Acetaminophen [Tylenol .Regular Strength -] 650 mg PO Q4H PRN #100 tablet Aspirin [Ecotrin] 81 mg PO DAILY #30 tab 07/30/17 Calcium Carbonate/Vitamin D3 [Calcium Petites Softgel] 1 each PO DAILY 30 Days # 60 tab 07/30/17 Cholecalciferol (Vitamin D3) [Vitamin D3] 1,000 unit PO DAILY #30 cap 07/30/17 Docusate Sodium [Colace -] 300 mg PO HS #30 capsule 07/30/17 Gemfibrozil 600 mg PO BID 30 Days #60 tab 07/30/17 Levothyroxine [Synthroid -] 75 mcg PO DAILY 30 Days #30 tab 07/30/17 Loratadine 10 mg PO HS #30 tab 07/30/17 metFORMIN XR [Glucophage Xr -] 500 mg PO DAILY@0700 30 Days #30 tab.sr.24h 07/30 Amlodipine Besylate 10 mg PO DAILY 10/09/17 Enalapril Maleate [Vasotec] 40 mg PO DAILY 10/09/17 Albuterol Sulfate Inhaler - [Ventolin HFA Inhaler -] 1 - 2 inh PO Q4H #1 inhaler 09/24/18 Inhaler, Assist Devices [Space Chamber Plus] 1 each MC Q4H #1 spacer 09/24/18 predniSONE [Deltasone -] 40 mg PO DAILY #8 tablet 09/24/18 COPD: No Diabetes: Yes GI Disorders: Yes HTN: Yes Hypercholesterolemia: Yes Thyroid Disease: Yes - Surgical History Appendectomy: Yes Cholecystectomy: Yes (JULY 2017) - Suicide/Smoking/Psychosocial Hx Smoking History: Never smoked Have you smoked in the past 12 months: No Information on smoking cessation initiated: No Hx Alcohol Use: No Drug/Substance Use Hx: No Substance Use Type: None *Physical Exam - Vital Signs Last Vital Signs Temp Pulse Resp BP Pulse Ox 98.1 F 73 18 154/70 96 09/24/18 19:50 09/24/18 19:50 09/24/18 19:50 09/24/18 19:50 09/24/18 19:50 ED Treatment Course - LABORATORY CBC & Chemistry Diagram: 09/24/18 20:15 09/24/18 20:15 - ADDITIONAL ORDERS Additional order review: Laboratory Results 09/24/18 09/24/18 09/24/18 20:15 20:15 20:15 Sodium 135 L Potassium 4.3 Chloride 100 Carbon Dioxide 22 Anion Gap 13 BUN 24 H Creatinine 0.9 Est GFR (CKD-EPI)AfAm 68.05 Est GFR (CKD-EPI)NonAf 58.71 Random Glucose 118 H Calcium 8.9 Total Bilirubin 0.8 AST 25 ALT 10 L Alkaline Phosphatase 87 Creatine Kinase 40 Troponin I < 0.03 Total Protein 8.1 Albumin 4.1 09/24/18 20:15 RBC 4.67 MCV 85.4 MCHC 32.3 RDW 13.3 MPV 9.2 Neutrophils % 54.3 Lymphocytes % 29.9 Monocytes % 14.3 H Eosinophils % 0.5 Basophils % 1.0 - RADIOLOGY Radiology Studies Ordered: Category Date Time Status CHEST X-RAY PORTABLE* [RAD] Stat Radiology 09/24/18 20:00 Taken - Medications Given in the ED: ED Medications Discontinued Medications Generic Name Dose Route Start Last Admin Trade Name Quin PRN Reason Stop Dose Admin Albuterol/Ipratropium 1 amp 09/24/18 21:04 09/24/18 21:18 Duoneb - NEB 09/24/18 21:05 1 amp ONCE ONE Administration Prednisone 40 mg 09/24/18 21:04 09/24/18 21:18 Deltasone - PO 09/24/18 21:05 40 mg ONCE ONE Administration *DC/Admit/Observation/Transfer Diagnosis at time of Disposition: Wheezing on both sides of chest - Discharge Dispostion Disposition: HOME Condition at time of disposition: Stable Decision to Admit order: No - Prescriptions Prescriptions: Albuterol Sulfate Inhaler - [Ventolin HFA Inhaler -] 1 - 2 inh PO Q4H #1 inhaler Inhaler, Assist Devices [Space Chamber Plus] 1 each MC Q4H #1 spacer predniSONE [Deltasone -] 40 mg PO DAILY #8 tablet - Referrals Referrals: Camila Desouza MD [Primary Care Provider] - - Patient Instructions Additional Instructions: You can use the inhaler as often as 2 puffs every 4-6 hours as needed for wheezing or shortness of breath use the inhaler with a spacer. Return to the emergency department immediately with ANY new, persistent or worsening symptoms. Continue any medications as previously prescribed by your physician. You should follow up with your primary doctor as soon as possible regarding today's emergency department visit. . Please make sure your doctor reviews the results of your emergency evaluation. Thank you for coming to the Emergency Department today for your care. It was a pleasure to see you today. Please note that your evaluation is INCOMPLETE until you follow-up with your doctor. - Post Discharge Activity
[2018-09-24] MEDS ORDERED: CEFTRIAXONE 1,000 MG in DEXTROSE 5%-WATER - 50 ML IVPB ONE (22:32)
--- NOTE | 2018-09-24 22:36 | PDOC ---
*Physical Exam - Vital Signs Last Vital Signs Temp Pulse Resp BP Pulse Ox 98.1 F 73 18 154/70 96 09/24/18 19:50 09/24/18 19:50 09/24/18 19:50 09/24/18 19:50 09/24/18 19:50 ED Treatment Course - LABORATORY CBC & Chemistry Diagram: 09/24/18 20:15 09/24/18 20:15 - ADDITIONAL ORDERS Additional order review: Laboratory Results 09/24/18 09/24/18 09/24/18 20:15 20:15 20:15 Sodium 135 L Potassium 4.3 Chloride 100 Carbon Dioxide 22 Anion Gap 13 BUN 24 H Creatinine 0.9 Est GFR (CKD-EPI)AfAm 68.05 Est GFR (CKD-EPI)NonAf 58.71 Random Glucose 118 H Calcium 8.9 Total Bilirubin 0.8 AST 25 ALT 10 L Alkaline Phosphatase 87 Creatine Kinase 40 Troponin I < 0.03 Total Protein 8.1 Albumin 4.1 TSH 1.14 09/24/18 20:15 RBC 4.67 MCV 85.4 MCHC 32.3 RDW 13.3 MPV 9.2 Neutrophils % 54.3 Lymphocytes % 29.9 Monocytes % 14.3 H Eosinophils % 0.5 Basophils % 1.0 - RADIOLOGY Radiology Studies Ordered: Category Date Time Status CHEST X-RAY PORTABLE* [RAD] Stat Radiology 09/24/18 20:00 Taken - Medications Given in the ED: ED Medications Discontinued Medications Generic Name Dose Route Start Last Admin Trade Name Freq PRN Reason Stop Dose Admin Albuterol/Ipratropium 1 amp 09/24/18 21:04 09/24/18 21:18 Duoneb - NEB 09/24/18 21:05 1 amp ONCE ONE Administration Prednisone 40 mg 09/24/18 21:04 09/24/18 21:18 Deltasone - PO 09/24/18 21:05 40 mg ONCE ONE Administration Progress Note - Progress Note Progress Note: Post completion evaluation patient's primary care doctor called and said she wanted her to be admitted. I have already discharge patient however in discussion with daughter patient and primary care doctor patient agreed to stay and be admitted so patient will be admitted to an inpatient bed for wheezing. *DC/Admit/Observation/Transfer Diagnosis at time of Disposition: Wheezing on both sides of chest - Discharge Dispostion Condition at time of disposition: Stable Decision to Admit order: Yes - Prescriptions Prescriptions: Albuterol Sulfate Inhaler - [Ventolin HFA Inhaler -] 1 - 2 inh PO Q4H #1 inhaler Inhaler, Assist Devices [Space Chamber Plus] 1 each MC Q4H #1 spacer predniSONE [Deltasone -] 40 mg PO DAILY #8 tablet - Referrals Referrals: Camila Desouza MD [Primary Care Provider] - - Patient Instructions Additional Instructions: You can use the inhaler as often as 2 puffs every 4-6 hours as needed for wheezing or shortness of breath use the inhaler with a spacer. Return to the emergency department immediately with ANY new, persistent or worsening symptoms. Continue any medications as previously prescribed by your physician. You should follow up with your primary doctor as soon as possible regarding today's emergency department visit. . Please make sure your doctor reviews the results of your emergency evaluation. Thank you for coming to the Emergency Department today for your care. It was a pleasure to see you today. Please note that your evaluation is INCOMPLETE until you follow-up with your doctor. - Post Discharge Activity
[2018-09-24] MEDS ORDERED: cefTRIAXone SODIUM 1 GM VIAL ONE (23:15)
[2018-09-25] MEDS: methylPREDNISolone NA SUCC 40 MG/1 ML VIAL IVPUSH SCH ×4 (03:48→21:14)
[2018-09-25] MEDS: INSULIN SLIDING SCALE (NOVOLOG) 1 VIAL SQ SCH ×4 (06:42→21:24)
[2018-09-25] MEDS: LEVOTHYROXINE NA 75 MCG TABLET (FP) PO SCH (06:42)
[2018-09-25] MEDS ORDERED: ALBUTEROL SO4 2.5/IPRATROPIUM 0.5 INH SOL 3 ML VIAL.NEB. NEB SCH (08:00)
[2018-09-25] MEDS: GEMFIBROZIL 600 MG TABLET (FP) PO SCH ×2 (08:13→16:55)
--- NOTE | 2018-09-25 08:56 | HP ---
Admitting History and Physical - Admission Chief Complaint: cough, wheezing, shortness of breath History of Present Illness: 83 yo female with PMH of DM type 2, HTN, CHF, OA was referred from my office for admission with complaints of cough, wheezing, shortness of breath. Symptoms started approximately 3 days ago. During this period patient developed fever associated with chills. She feels weak and has poor appetite. History Source: Patient Limitations to Obtaining History: No Limitations - Past Medical History Cardiovascular: Yes: HTN Gastrointestinal: Yes: Constipation ...LMP Comment: 83 YEAR OLD Musculoskeletal: Yes: Chronic low back pain, Osteoarthritis (of the knees), Other (Spinal stenosis of the cervical area) Endocrine: Yes: Diabetes Mellitus, Hypothyroidism - Smoking History Smoking history: Never smoked Have you smoked in the past 12 months: No - Alcohol/Substance Use Hx Alcohol Use: No - Social History ADL: Independent History of Recent Travel: No Home Medications - Allergies Allergies/Adverse Reactions: Allergies Allergy/AdvReac Type Severity Reaction Status Date / Time black pepper Allergy Verified 09/24/18 19:46 clopidogrel [From Plavix] Allergy Verified 09/24/18 19:46 gabapentin Allergy Verified 09/24/18 19:46 montelukast [From Singulair] Allergy Verified 09/24/18 19:46 shellfish derived Allergy Verified 09/24/18 19:46 sulfamethoxazole Allergy Verified 09/24/18 19:46 [From Bactrim] trimethoprim [From Bactrim] Allergy Verified 09/24/18 19:46 mendy Allergy Uncoded 10/09/17 19:23 - Home Medications Home Medications: Ambulatory Orders Docusate Sodium [Colace -] 100 mg PO TID #90 capsule 07/29/17 Acetaminophen [Tylenol .Regular Strength -] 650 mg PO Q4H PRN #100 tablet Aspirin [Ecotrin] 81 mg PO DAILY #30 tab 07/30/17 Calcium Carbonate/Vitamin D3 [Calcium Petites Softgel] 1 each PO DAILY 30 Days # 60 tab 07/30/17 Cholecalciferol (Vitamin D3) [Vitamin D3] 1,000 unit PO DAILY #30 cap 07/30/17 Docusate Sodium [Colace -] 300 mg PO HS #30 capsule 07/30/17 Gemfibrozil 600 mg PO BID 30 Days #60 tab 07/30/17 Levothyroxine [Synthroid -] 75 mcg PO DAILY 30 Days #30 tab 07/30/17 Loratadine 10 mg PO HS #30 tab 07/30/17 metFORMIN XR [Glucophage Xr -] 500 mg PO DAILY@0700 30 Days #30 tab.sr.24h 07/30 Amlodipine Besylate 10 mg PO DAILY 10/09/17 Enalapril Maleate [Vasotec] 40 mg PO DAILY 10/09/17 Albuterol Sulfate Inhaler - [Ventolin HFA Inhaler -] 1 - 2 inh PO Q4H #1 inhaler 09/24/18 Inhaler, Assist Devices [Space Chamber Plus] 1 each MC Q4H #1 spacer 09/24/18 predniSONE [Deltasone -] 40 mg PO DAILY #8 tablet 09/24/18 Review of Systems - Review of Systems Constitutional: reports: Fever, Lethargy, Weakness Neck: reports: No Symptoms Cardiovascular: reports: No Symptoms Respiratory: reports: Cough, Exercise Intolerance, Orthopnea, SOB, SOB on Exertion, Wheezing Gastrointestinal: reports: Constipation Breasts: reports: No Symptoms Reported Musculoskeletal: reports: Back Pain Integumentary: reports: No Symptoms Neurological: reports: Parasthesia (in lower extremities), Weakness (of lower extremities) Psychiatric: reports: No Symptoms Physical Examination Vital Signs: Vital Signs Temperature 97.6 F 09/25/18 06:51 Pulse Rate 73 09/25/18 06:51 Respiratory Rate 18 09/25/18 08:20 Blood Pressure 122/65 09/25/18 06:51 O2 Sat by Pulse Oximetry (%) 96 09/25/18 08:20 Constitutional: Yes: Mild Distress, Thin Eyes: Yes: WNL HENT: Yes: Nasal Congestion Cardiovascular: Yes: Regular Rate and Rhythm, S1, S2 Respiratory: Yes: Cough, SOB on Exertion, Tachypnea, Wheezes (bilateral from top to bottom, do not clear with cough) Gastrointestinal: Yes: Normal Bowel Sounds, Soft. No: Hepatomegaly, Splenomegaly ...Rectal Exam: Yes: Deferred Breast(s): Yes: WNL Musculoskeletal: Yes: Back Pain, Muscle Weakness Extremities: No: Calf Tenderness Edema: No Peripheral Pulses WNL: Yes Integumentary: Yes: WNL Neurological: Yes: Alert, Oriented Psychiatric: Yes: Alert, Oriented Labs: CBC, BMP 09/24/18 20:15 09/24/18 20:15 Imaging - Results Chest X-ray: Other (cardiomegaly, increased compared to CXR from previous asdmission, parahilar congestion, no pleural effusion) Problem List - Problems (1) Asthma exacerbation Assessment/Plan: bed rest Solumedrol iv taper doses Duoneb qid Ceftriaxone iv Code(s): J45.901 - UNSPECIFIED ASTHMA WITH (ACUTE) EXACERBATION (2) Acute bronchitis and bronchiolitis Assessment/Plan: Ceftriaxone 1 gm iv daily Duoneb qid Solumedrol iv 40 mg Q6H Code(s): J20.9 - ACUTE BRONCHITIS, UNSPECIFIED; J21.9 - ACUTE BRONCHIOLITIS, UNSPECIFIED (3) Diabetes mellitus type 2 in nonobese Assessment/Plan: accuchecks with ELY hold Glucophage Code(s): E11.9 - TYPE 2 DIABETES MELLITUS WITHOUT COMPLICATIONS (4) HTN (hypertension) Assessment/Plan: blood pressure is stable Continue Lisinopril Code(s): I10 - ESSENTIAL (PRIMARY) HYPERTENSION (5) Hypothyroidism Assessment/Plan: continue Synthroid ]repeat TSH WNL Code(s): E03.9 - HYPOTHYROIDISM, UNSPECIFIED (6) CHF exacerbation Assessment/Plan: ECHO to asses current cardiac status Code(s): I50.9 - HEART FAILURE, UNSPECIFIED Assessment/Plan 83 yo female with PMH of HTN, CHF, DM type 2 ,. developed fever, dyspnea and extensive wheezing assocciated with extreme weakness. She will be admitted for IV antibiotics and steroids
--- NOTE | 2018-09-25 09:28 | EKG ---
Test Reason : Blood Pressure : / mmHG Vent. Rate : 065 BPM Atrial Rate : 065 BPM P-R Int : 170 ms QRS Dur : 076 ms QT Int : 398 ms P-R-T Axes : 048 -49 058 degrees QTc Int : 413 ms POOR DATA QUALITY, INTERPRETATION MAY BE ADVERSELY AFFECTED NORMAL SINUS RHYTHM LEFT AXIS DEVIATION ABNORMAL ECG WHEN COMPARED WITH ECG OF 28-JUL-2017 15:57, PREMATURE VENTRICULAR COMPLEXES ARE NO LONGER PRESENT T WAVE INVERSION LESS EVIDENT IN ANTERIOR LEADS QT HAS SHORTENED Confirmed by DENISSE JUDGE, EMMANUEL ([id number]) on 09/25/2018 9:28:17 AM Referred By: DR WALLACE Confirmed By:EMMANUEL SALCEDO MD
[2018-09-25] MEDS: ENALAPRIL MALEATE 10 MG TABLET (FP) PO SCH (09:46)
[2018-09-25] MEDS: amLODIPine BESYLATE 10 MG TABLET (FP) PO SCH (09:46)
[2018-09-25] MEDS ORDERED: CEFTRIAXONE 1,000 MG in DEXTROSE 5%-WATER - 50 ML IVPB SCH (10:00)
[2018-09-25] MEDS ORDERED: INSULIN (NOVOLOG) ASPART 100 UNITS/ML 10ML VIAL ONE ×3 (11:43→21:23)
[2018-09-25] MEDS: ALBUTEROL SO4 2.5/IPRATROPIUM 0.5 INH SOL 3 ML VIAL.NEB. NEB SCH ×2 (14:54→21:14)
--- NOTE | 2018-09-25 15:03 | ECHO ---
Name: FABIOLA PARISH Exam:Adult Echocardiogram Study Date: 09/25/2018 02:05 PM Age: 83 yrs Reason For Study: Enlarged Heart Height: 60 in Weight: 101 lb BSA: 1.4 m2 MMode/2D Measurements & Calculations Ao root diam: 2.3 cm LVOT diam: 1.8 cm LA dimension: 2.6 cm Doppler Measurements & Calculations MV E max emil: 73.1 cm/sec MV A max emil: 103.7 cm/sec MV dec slope: 386.3 cm/sec2 MV E/A: 0.70 Ao V2 max: 142.4 cm/sec LV V1 max P.0 mmHg Ao max P.1 mmHg LV V1 max: 122.6 cm/sec HAVEN(V,D): 2.1 cm2 MR max emil: 230.8 cm/sec TR max emil: 257.8 cm/sec MR max P.3 mmHg TR max P.6 mmHg PA V2 max: 107.3 cm/sec PI end-d emli: 109.9 cm/sec PA max P.6 mmHg Procedure A two-dimensional transthoracic echocardiogram with color flow and Doppler was performed. Left Ventricle The left ventricular size, thickness and function are normal. The left ventricular ejection fraction is normal. E/A reversal consistent with but not diagnostic of poor LV compliance. The left ventricular w all motion is normal. Right Ventricle The right ventricle is not well visualized. Atria Normal left and right atrial size and function. Mitral Valve There is mild mitral valve thickening. There is no mitral valve stenosis. There is trace to mild mitr al regurgitation. Tricuspid Valve There is mild tricuspid valve thickening. There is no tricuspid stenosis. There is Trace to mild tric uspid regurgitation. Right ventricular systolic pressure is elevated at 30-40mmHg. Aortic Valve The aortic valve is not well visualized. No hemodynamically significant valvular aortic stenosis. Mil d to moderate aortic regurgitation. Pulmonic Valve The pulmonic valve is not well visualized. Mild pulmonic valvular regurgitation. Great Vessels The aortic root is normal size. Pericardium/Pleura There is no pericardial effusion. Interpretation Summary Mild to moderate aortic regurgitation. E/A reversal consistent with but not diagnostic of poor LV compliance The left ventricular ejection fraction is normal. The left ventricular size, thickness and function are normal The left ventricular wall motion is normal. There is trace to mild mitral regurgitation. There is Trace to mild tricuspid regurgitation. Right ventricular systolic pressure is elevated at 30-40mmHg. MD Karlos Naik 09/25/2018 03:03 PM
[2018-09-25] MEDS ORDERED: PT OWN MED DRAWER 7, Y5N ONE (16:34)
[2018-09-25] MEDS: CEFTRIAXONE 1 G/50 ML PREMIX 50 ML IVPB SCH (21:13)
[2018-09-26] MEDS: ALBUTEROL SO4 2.5/IPRATROPIUM 0.5 INH SOL 3 ML VIAL.NEB. NEB SCH ×4 (03:28→21:16)
[2018-09-26] MEDS: methylPREDNISolone NA SUCC 40 MG/1 ML VIAL IVPUSH SCH ×3 (03:29→17:37)
[2018-09-26] MEDS: GEMFIBROZIL 600 MG TABLET (FP) PO SCH ×2 (06:07→17:25)
[2018-09-26] MEDS: LEVOTHYROXINE NA 75 MCG TABLET (FP) PO SCH (06:07)
[2018-09-26] MEDS ORDERED: INSULIN (NOVOLOG) ASPART 100 UNITS/ML 10ML VIAL ONE ×2 (06:09→21:19)
[2018-09-26] MEDS: INSULIN SLIDING SCALE (NOVOLOG) 1 VIAL SQ SCH ×4 (06:09→21:20)
[2018-09-26 08:14] LABS: EOS % 0.1 % (0-4.5); HEMATOCRIT 37.7 % (32.4-45.2); LYMPH % 16.4 % (8-40); MCH 27.5 pg (25.7-33.7); MCHC 31.8 g/dl (32.0-36.0); MEAN CELL VOLUME 86.4 fl (80-96); MEAN PLT VOLUME 9.1 fl (7.5-11.1); MONO % 6.7 % (3.8-10.2); NEUT % 76.8 % (42.8-82.8); PLATELET COUNT 170 K/MM3 (134-434); RBC 4.36 M/mm3 (3.60-5.2); RDW 13.4 % (11.6-15.6)
[2018-09-26 08:18] LABS: ALBUMIN 3.7 g/dl (3.4-5.0); BILIRUBIN,TOTAL 0.6 mg/dl (0.2-1); CALCIUM 8.6 mg/dl (8.5-10); CREATININE 0.8 mg/dl (0.55-1.3); POTASSIUM 4.9 mmol/L (3.5-5.1); TOT PROT 7.2 g/dl (6.4-8.2)
[2018-09-26] MEDS ORDERED: PT OWN MED DRAWER 7, Y5N ONE ×2 (09:38→17:11)
[2018-09-26] MEDS: amLODIPine BESYLATE 10 MG TABLET (FP) PO SCH (10:13)
[2018-09-26] MEDS: ENALAPRIL MALEATE 10 MG TABLET (FP) PO SCH (10:13)
--- NOTE | 2018-09-26 15:48 | PN ---
Progress Note, Physician Chief Complaint: Patient feeling better, still wheezing despite Solumedrol. Nebulizers helping for approximately 3 hours then symptoms are recurring. Patient had a bowel movement yesterday and her appetite is better. - Current Medication List Current Medications: Active Medications Albuterol/Ipratropium (Duoneb -) 1 amp NEB Q6H [facility] Last Admin: 09/26/18 10:12 Dose: 1 amp Amlodipine Besylate (Norvasc -) 10 mg PO DAILY [facility] Last Admin: 09/26/18 10:13 Dose: 10 mg Enalapril Maleate (Vasotec -) 40 mg PO DAILY [facility] Last Admin: 09/26/18 10:13 Dose: 40 mg Gemfibrozil (Lopid -) 600 mg PO BID@0700,1630 [facility] Last Admin: 09/26/18 06:07 Dose: 600 mg Ceftriaxone Sodium (Ceftriaxone 1 Gm-D5w Bag) 50 mls @ 100 mls/hr IVPB DAILY@ 2200 [facility] Last Admin: 09/25/18 21:13 Dose: 100 mls/hr Insulin Aspart (Novolog Vial Sliding Scale -) 1 vial SQ ACHS [facility]; Protocol Last Admin: 09/26/18 11:51 Dose: 10 units Levothyroxine Sodium (Synthroid -) 75 mcg PO AM [facility] Last Admin: 09/26/18 06:07 Dose: 75 mcg Methylprednisolone Sodium Succinate (Solu-Medrol -) 40 mg IVPUSH Q8H-IV [facility] Metoprolol Succinate (Toprol Xl -) 50 mg PO DAILY [facility] Last Admin: 09/26/18 10:13 Dose: 50 mg - Objective Vital Signs: Vital Signs Temperature 97.4 F L 09/26/18 14:00 Pulse Rate 66 09/26/18 14:00 Respiratory Rate 18 09/26/18 14:00 Blood Pressure 137/67 09/26/18 14:00 O2 Sat by Pulse Oximetry (%) 100 09/26/18 14:00 Constitutional: Yes: No Distress, Calm Eyes: Yes: Conjunctiva Clear, EOM Intact HENT: Yes: Atraumatic, Normocephalic Neck: Yes: Supple, Trachea Midline Cardiovascular: Yes: Regular Rate and Rhythm, S1, S2 Respiratory: Yes: Rhonchi (at the right base). No: Orthopnea Gastrointestinal: Yes: Normal Bowel Sounds, Soft, Other (midline post surgical scar). No: Hemorrhoids, Hepatomegaly, Splenomegaly Musculoskeletal: Yes: Muscle Weakness Extremities: No: Calf Tenderness Edema: No Peripheral Pulses WNL: Yes Neurological: Yes: Alert, Oriented Psychiatric: Yes: Alert, Oriented Labs: CBC, BMP 09/26/18 07:00 09/26/18 07:00 Problem List - Problems (1) Asthma exacerbation Assessment/Plan: bed rest decrease Solumedrol iv to 40 mg every 8 hours continue Duoneb qid continue Ceftriaxone 1 gm iv daily Code(s): J45.901 - UNSPECIFIED ASTHMA WITH (ACUTE) EXACERBATION (2) Acute bronchitis and bronchiolitis Assessment/Plan: Ceftriaxone 1 gm iv daily Duoneb qid Solumedrol iv 40 mg Q8H Code(s): J20.9 - ACUTE BRONCHITIS, UNSPECIFIED; J21.9 - ACUTE BRONCHIOLITIS, UNSPECIFIED (3) Diabetes mellitus type 2 in nonobese Assessment/Plan: accuchecks with ELY hold Glucophage Code(s): E11.9 - TYPE 2 DIABETES MELLITUS WITHOUT COMPLICATIONS (4) HTN (hypertension) Assessment/Plan: blood pressure is stable Continue Lisinopril Code(s): I10 - ESSENTIAL (PRIMARY) HYPERTENSION (5) Hypothyroidism Assessment/Plan: continue Synthroid ]repeat TSH WNL Code(s): E03.9 - HYPOTHYROIDISM, UNSPECIFIED (6) CHF exacerbation Assessment/Plan: ECHO showing normal LV EF, E/A reversal Code(s): I50.9 - HEART FAILURE, UNSPECIFIED
[2018-09-26 16:43] VITALS: BMI 19.7
[2018-09-26] MEDS: CEFTRIAXONE 1 G/50 ML PREMIX 50 ML IVPB SCH (21:16)
[2018-09-27] MEDS: methylPREDNISolone NA SUCC 40 MG/1 ML VIAL IVPUSH SCH ×2 (02:00→09:50)
[2018-09-27] MEDS: ALBUTEROL SO4 2.5/IPRATROPIUM 0.5 INH SOL 3 ML VIAL.NEB. NEB SCH ×3 (03:00→16:00)
[2018-09-27] MEDS ORDERED: PT OWN MED DRAWER 7, Y5N ONE ×2 (06:02→16:22)
[2018-09-27 06:18] VITALS: TEMP 97.9
[2018-09-27] MEDS: INSULIN SLIDING SCALE (NOVOLOG) 1 VIAL SQ SCH ×3 (06:29→16:47)
[2018-09-27] MEDS: LEVOTHYROXINE NA 75 MCG TABLET (FP) PO SCH (06:29)
[2018-09-27] MEDS: GEMFIBROZIL 600 MG TABLET (FP) PO SCH ×2 (06:29→16:39)
--- NOTE | 2018-09-27 09:42 | DS ---
Physical Examination Vital Signs: Vital Signs Temperature 97.9 F 09/27/18 06:00 Pulse Rate 62 09/27/18 06:00 Respiratory Rate 18 09/27/18 06:00 Blood Pressure 144/69 09/27/18 06:00 O2 Sat by Pulse Oximetry (%) 97 09/27/18 08:38 Constitutional: Yes: No Distress, Calm Eyes: Yes: Conjunctiva Clear, EOM Intact HENT: Yes: Atraumatic, Normocephalic Neck: Yes: Supple, Trachea Midline Cardiovascular: Yes: Regular Rate and Rhythm, Murmur (soft systolic , present in the left parasternal area, not radiating), S1, S2 Respiratory: Yes: Regular, Wheezes (minimal wheezes at the bases bilaterally, examination performed 4 hours after administration of nebulizer) Gastrointestinal: Yes: Normal Bowel Sounds, Soft. No: Hepatomegaly, Splenomegaly ...Rectal Exam: Yes: Deferred Musculoskeletal: Yes: Muscle Weakness (on lower extremities) Extremities: No: Calf Tenderness Edema: No Peripheral Pulses WNL: Yes Neurological: Yes: Alert, Oriented Psychiatric: Yes: Alert, Oriented Labs: CBC, BMP 09/26/18 07:00 09/26/18 07:00 Discharge Summary Reason For Visit: WHEEZING BOTH SIDES OF CHEST Current Active Problems Acute bronchitis and bronchiolitis (Acute) Asthma exacerbation (Acute) CHF exacerbation (Acute) Wheezing on both sides of chest (Acute) Hospital Course: 83 yo female with PMH of Asthma,/COPD, DM type 2, CHF presented to ER with complaints of fever, dyspnea, cough and limited tolerance to exertion. She was admitted for administration of IV steroids and antibiotic. Patient improved and will be discharged today with VNS for follow up . She will see me in the office within 7 days. Treatment will continue: 7 days Augmentin po, Prednisone 40 mg daily, PRotonix for GI prophylaxis and DuoNEb every 8 hours. Prescriptions were sent to the local [facility] PAtient will resume her Glucophage and all BP medications. Condition: Fair - Instructions Diet, Activity, Other Instructions: low sodium, low CH diet Disposition: HOME - Home Medications Comprehensive Discharge Medication List: Ambulatory Orders Docusate Sodium [Colace -] 100 mg PO TID #90 capsule 07/29/17 Acetaminophen [Tylenol .Regular Strength -] 650 mg PO Q4H PRN #100 tablet Aspirin [Ecotrin] 81 mg PO DAILY #30 tab 07/30/17 Calcium Carbonate/Vitamin D3 [Calcium Petites Softgel] 1 each PO DAILY 30 Days # 60 tab 07/30/17 Cholecalciferol (Vitamin D3) [Vitamin D3] 1,000 unit PO DAILY #30 cap 07/30/17 Docusate Sodium [Colace -] 300 mg PO HS #30 capsule 07/30/17 Gemfibrozil 600 mg PO BID 30 Days #60 tab 07/30/17 Levothyroxine [Synthroid -] 75 mcg PO DAILY 30 Days #30 tab 07/30/17 Loratadine 10 mg PO HS #30 tab 07/30/17 metFORMIN XR [Glucophage Xr -] 500 mg PO DAILY@0700 30 Days #30 tab.sr.24h 07/30 Amlodipine Besylate 10 mg PO DAILY 10/09/17 Enalapril Maleate [Vasotec] 40 mg PO DAILY 10/09/17 Albuterol Sulfate Inhaler - [Ventolin HFA Inhaler -] 1 - 2 inh PO Q4H #1 inhaler 09/24/18 Inhaler, Assist Devices [Space Chamber Plus] 1 each MC Q4H #1 spacer 09/24/18 predniSONE [Deltasone -] 40 mg PO DAILY #8 tablet 09/24/18 Albuterol 2.5/Ipratropium 0.5 [Duoneb -] 1 amp NEB Q8H 10 Days #30 amp 09/27/18 Amlodipine Besylate [Norvasc -] 10 mg PO DAILY tablet 09/27/18 Enalapril Maleate [Vasotec -] 40 mg PO DAILY tablet 09/27/18 Gemfibrozil [Lopid -] 600 mg PO BID@0700,1630 tablet 09/27/18 Levothyroxine [Synthroid -] 75 mcg PO AM tablet 09/27/18 Metoprolol Succinate [Toprol XL -] 50 mg PO DAILY tab.sr.24h 09/27/18
[2018-09-27 09:47] VITALS: BP 139/64; PULSE 65
[2018-09-27] MEDS: ENALAPRIL MALEATE 10 MG TABLET (FP) PO SCH (09:48)
[2018-09-27] MEDS: amLODIPine BESYLATE 10 MG TABLET (FP) PO SCH (09:50)
[2018-09-27] MEDS ORDERED: REFRIGERATED ANITBIOTICS ONE (11:29)
[2018-09-27] MEDS ORDERED: INSULIN (NOVOLOG) ASPART 100 UNITS/ML 10ML VIAL ONE ×2 (11:52→16:45)
== END 2018-09-27 17:56 | disposition home or self-care (01) | DRG 202 ==
LOC: FER 19:40 → FM/S 22:36 → UNDOADMIN 23:23 → FM/S 23:23
PROVIDERS: ADMIT Internal Medicine; ATTEND Internal Medicine
PROC: 3E0F7GC Introduction of Other Therapeutic Substance into Respiratory Tract, Via Natural or Artificial Opening (ICD-10-PCS; principal; 2018-09-24)
DX: J45.901 Unspecified asthma with (acute) exacerbation (principal); J21.9 Acute bronchiolitis, unspecified; J20.9 Acute bronchitis, unspecified; I11.0 Hypertensive heart disease with heart failure; I50.9 Heart failure, unspecified; E11.9 Type 2 diabetes mellitus without complications; E78.5 Hyperlipidemia, unspecified; E03.9 Hypothyroidism, unspecified; M17.0 Bilateral primary osteoarthritis of knee; Z79.84 Long term (current) use of oral hypoglycemic drugs; G89.29 Other chronic pain; M54.5 Low back pain; K29.00 Acute gastritis without bleeding
CPT/HCPCS: 36415; 71045-TC-FY; 80053; 82550; 82962; 83036; 84443; 84484; 85025; 87040; 93005; 93306-TC; 94640; 99281-25

== ENCOUNTER 2019-04-20 22:07 | Emergency (ER) | payer OTHER ==
[2019-04-20 22:12] VITALS: BP 162/66; PULSE 74; TEMP 97.8; BMI 19.5
--- NOTE | 2019-04-20 22:36 | PDOC ---
Documentation entered by Margarita Tilley SCRIBE, acting as scribe for Mandi Jeong MD. Mandi Jeong MD: This documentation has been prepared by the Jarek yeboah Nirvannie, SCRIBE, under my direction and personally reviewed by me in its entirety. I confirm that the documentation accurately reflects all work, treatment, procedures, and medical decision making performed by me. History of Present Illness - General Chief Complaint: Urinary Problem Stated Complaint: PAINFUL URINATION Time Seen by Provider: 04/20/19 22:11 History Source: Patient, Family (Daughter.) Exam Limitations: No Limitations - History of Present Illness Initial Comments: 04/20/19 22:34 HPI: The patient is an 83 year old female, with a significant past medical history of hypertension, hyperlipidemia, hypothyroidism, diabetes, osteoarthritis, and glaucoma, who presents to the emergency department with 4 days of frequency, urgency, and new onset 2 days dysuria. Patient describes her urine as malodorous and endorses associated suprapubic discomfort as 7/10 and 9/10 when attempting to urinate, prompting her arrival to the ED. Patients daughter at bedside notes that she has been under a significant amount of stress lately secondary to a recent family . She denies recent hematuria. She denies recent fevers, chills, headache or dizziness. She denies recent nausea, vomiting, diarrhea or constipation. She denies recent chest pain or shortness of breath. PAST MEDICAL HISTORY: Hypertension, hyperlipidemia, hypothyroidism, diabetes, osteoarthritis, and glaucoma. PAST SURGICAL HISTORY: Appendectomy, cholecystectomy, x1. FAMILY HISTORY: no pertinent history SOCIAL HISTORY: Pt lives with family. MEDICATIONS: reviewed ALLERGIES: As per nursing notes ROS: General: No fevers or chills, no weakness, no weight loss HEENT: No change in vision. No sore throat,. No ear pain CardioVascular: No chest pain or shortness of breath Respiratory:No cough, or wheezing. Gastrointestinal: no nausea, vomiting, diarrhea or constipation, No rectal bleeding Genitourinary: +Dysuria. +Frequency. +Urgency. No hematuria. Musculoskeletal: No joint or muscle pain or swelling Neurologic: No headache, vertigo, dizziness or loss of consciousness Psychiatric: nor depression Skin: No rashes or easy bruising Endocrine: no increased thirst or abnormal weight change Allergic: no skin or latex allergy All other systems reviewed and normal Physical Exam: GENERAL: The patient is awake, alert, and fully oriented, in no acute distress. HEAD: Normal with no signs of trauma. EYES: Pupils equal, round and reactive to light, extraocular movements intact, sclera anicteric, conjunctiva clear. Abdomen: Soft, nondistended, normal bowel sounds, nontender to palpation diffusely +Back: Mild right CVA tenderness. No left CVA tenderness. EXTREMITIES: Normal range of motion, no edema. NEUROLOGICAL: Normal speech, normal gait. PSYCH: Normal mood, normal affect. SKIN: Warm, Dry, normal turgor, no rashes or lesions noted. Assessment and plan: This is an 83-year-old female comes in complaining of frequency and dysuria with some pain in the area of her bladder. Patient on my exam did also have some mild right CVA tenderness. Patient otherwise is afebrile has not had a fever and is tolerating p.o.'s. Will obtain a urine as patient most likely has a urinary tract infection. 04/20/19 22:35 Patient's urinalysis was positive for leukocytes red cells and nitrates. We will start patient on Macrobid and give her Pyridium as well. Patient discharged we will follow-up with her primary care doctor. 04/20/19 22:53 Past History - Past Medical History Allergies/Adverse Reactions: Allergies Allergy/AdvReac Type Severity Reaction Status Date / Time black pepper Allergy Verified 04/20/19 22:08 clopidogrel [From Plavix] Allergy Verified 04/20/19 22:08 gabapentin Allergy Verified 04/20/19 22:08 montelukast [From Singulair] Allergy Verified 04/20/19 22:08 shellfish derived Allergy Verified 04/20/19 22:08 sulfamethoxazole Allergy Verified 04/20/19 22:08 [From Bactrim] trimethoprim [From Bactrim] Allergy Verified 04/20/19 22:08 mendy Allergy Uncoded 04/20/19 22:08 Home Medications: Ambulatory Orders Acetaminophen [Tylenol .Regular Strength -] 650 mg PO Q4H PRN #100 tablet Aspirin [Ecotrin] 81 mg PO DAILY #30 tab 07/30/17 Calcium Carbonate/Vitamin D3 [Calcium Petites Softgel] 1 each PO DAILY 30 Days # 60 tab 07/30/17 Cholecalciferol (Vitamin D3) [Vitamin D3] 1,000 unit PO DAILY #30 cap 07/30/17 Docusate Sodium [Colace -] 300 mg PO HS #30 capsule 07/30/17 Loratadine 10 mg PO HS #30 tab 07/30/17 metFORMIN XR [Glucophage Xr -] 500 mg PO DAILY@0700 30 Days #30 tab.sr.24h 07/30 Amlodipine Besylate [Norvasc -] 10 mg PO DAILY tablet 09/27/18 Enalapril Maleate [Vasotec -] 40 mg PO DAILY tablet 09/27/18 Gemfibrozil [Lopid -] 600 mg PO BID@0700,1630 tablet 09/27/18 Levothyroxine [Synthroid -] 75 mcg PO AM tablet 09/27/18 Metoprolol Succinate [Toprol XL -] 50 mg PO DAILY tab.sr.24h 09/27/18 Ezetimibe [Zetia -] 10 mg PO HS 04/20/19 Lovastatin 10 mg PO HS 04/20/19 Nitrofurantoin Monohyd/M-Cryst [Macrobid -] 100 mg PO BID #14 capsule 04/20/19 Phenazopyridine HCl [Pyridium] 200 mg PO TID #6 tablet 04/20/19 COPD: No Diabetes: Yes GI Disorders: Yes HTN: Yes Hypercholesterolemia: Yes Thyroid Disease: Yes (Hypothyroid) - Surgical History Appendectomy: Yes Cholecystectomy: Yes () - Psycho Social/Smoking Cessation Hx Smoking History: Never smoked Have you smoked in the past 12 months: No Information on smoking cessation initiated: No Hx Alcohol Use: No Drug/Substance Use Hx: No Substance Use Type: None *Physical Exam - Vital Signs Last Vital Signs Temp Pulse Resp BP Pulse Ox 97.8 F 74 19 162/66 99 04/20/19 22:09 04/20/19 22:09 04/20/19 22:09 04/20/19 22:09 04/20/19 22:09 Discharge - Discharge Information Problems reviewed: Yes Clinical Impression/Diagnosis: Cystitis Disposition: HOME - Admission No - Follow up/Referral - Patient Discharge Instructions Patient Printed Discharge Instructions: Urinary Tract Infection Additional Instructions: Take Macrobid 1 tablet twice a day for 7 days this is for the infection Take Pyridium 1 tablet 3 times a day for 2 days this is for the discomfort and burning on urination. Return to the emergency department immediately with ANY new, persistent or worsening symptoms. Continue any medications as previously prescribed by your physician. You should follow up with your primary doctor as soon as possible regarding today's emergency department visit. . Please make sure your doctor reviews the results of your emergency evaluation. Thank you for coming to the Emergency Department today for your care. It was a pleasure to see you today. Please note that your evaluation is INCOMPLETE until you follow-up with your doctor. - Post Discharge Activity
[2019-04-20] MEDS ORDERED: PHENAZOPYRIDINE HCL 100 MG TABLET (FP) PO ONE (22:53)
[2019-04-20] MEDS ORDERED: NITROFURANTOIN MACROCRYSTAL 50 MG CAPSULE (FP) PO SCH (23:00)
[2019-04-20] MEDS ORDERED: NITROFURANTOIN MACROCRYSTAL 50 MG CAPSULE (FP) ONE (23:00)
[2019-04-20] MEDS ORDERED: PHENAZOPYRIDINE HCL 100 MG TABLET (FP) ONE (23:01)
[2019-04-20 23:15] LABS: EPITHELIAL CELLS FEW /hpf
== END 2019-04-20 23:15 | disposition home or self-care (01) ==
LOC: FER 22:07
DX: N30.91 Cystitis, unspecified with hematuria (principal); Z88.8 Allergy status to other drugs, medicaments and biological substances; Z91.018 Allergy to other foods; E03.9 Hypothyroidism, unspecified; E11.9 Type 2 diabetes mellitus without complications; I10 Essential (primary) hypertension; E78.00 Pure hypercholesterolemia, unspecified
CPT/HCPCS: 81003; 81015; 87086; 87186; 99282-25